=== PATIENT | female | born 1970 | race Caucasian/White ===

== ENCOUNTER 2023-05-19 22:00 | Emergency (ER) | payer OTHER, SELFPAY ==
--- NOTE | ~2023-05-19 | XR_ITS ---
EXAMINATION: XR chest 2V DATE: 05/19/2023 22:30 INDICATION: Chest pain. Nausea. TECHNIQUE: Frontal and lateral views of the chest were obtained. COMPARISON: Chest 2 views 03/23/2014 FINDINGS: A calcified left lung nodule is consistent with old granulomatous disease. There is mild sc arring at right lung apex. No pleural effusion or pneumothorax. The heart size is normal. IMPRESSION: 1. Mild scarring at right lung apex. Reviewed, dictated and finalized at location E.
[2023-05-19 22:04] VITALS: PULSE 70; RESP 19; TEMP 36; O2SAT 100
--- NOTE | 2023-05-19 22:05 | ECG_ITS ---
Measurements Intervals [place] Rate: 69 P: 78 [place]: 173 QRS: 76 QRSD: 92 T: 68 QT: 425 QTc: 457 Interpretive Statements SINUS RHYTHM LOW QRS VOLTAGE IN PRECORDIAL LEADS BORDERLINE ECG NO PREVIOUS ECG AVAILABLE FOR COMPARISON Electronically Signed On 05-20-2023 7:56:14 CDT by Talha Abreu D.O.
[2023-05-19 22:32] LABS: Basophils Absolute Auto 0.1 K/mm3 (0.0-0.1); Basophils Percent Auto 1.2 % (0.2-1.2); Eosinophils Absolute Auto 0.4 K/mm3 (0-0.3); Eosinophils Percent Auto 4.8 % (0-4.4); Hemoglobin 12.9 g/dL (12.0-15.0); Immature Granulocyte Absolute 0.02 K/mm3 (0.00-0.031); Immature Granulocyte Percent A 0.3 % (0-0.5); Lymphocytes Absolute Auto 3.04 K/mm3 (0.9-3.2); Lymphocytes Percent Auto 39.5 % (18.3-44.2); Mean Corpuscular HGB Conc 33.1 g/dl (32-36); Mean Corpuscular Hemoglobin 32.3 pg (26-34); Mean Corpuscular Volume 97.5 fl (80-100); Mean Platelet Volume 12.3 fl (7.4-10.4); Monocytes Absolute Auto 0.6 K/mm3 (0.1-0.6); Monocytes Percent Auto 7.5 % (2.6-8.5); Neutrophils Absolute Auto 3.6 K/mm3 (1.3-6.7); Neutrophils Percent Auto 46.7 % (45.5-73.1); Platelet Count Result 179 k/mm3 (150-375); White Blood Count 7.7 K/mm3 (4.5-10.0)
[2023-05-19 22:43] LABS: Prothrombin Time 13.2 Seconds (11.1-14.7)
[2023-05-19 22:44] LABS: Partial Thromboplastin Time 28.2 SECONDS (22.3-36.8)
[2023-05-19 22:47] LABS: Alanine Aminotransferase 22 U/L (6-35); Albumin Level 3.9 g/dL (3.5-5.1); Alkaline Phosphatase 73 U/L (38-126); Anion Gap 7 mmol/L (8-16); Aspartate Amino Transferase 41 U/L (14-36); Bilirubin,Total 0.2 mg/dL (0.2-1.3); Blood Urea Nitrogen 18 mg/dL (7-17); Calcium 8.8 mg/dL (8.4-10.2); Carbon Dioxide 31 mmol/L (22-30); Chloride 100 mmol/L (98-107); Estimated CRCL calculation 87 ml/min; Estimated Glomerular Filt Rate > 60; Glucose 109 mg/dL (65-110); Lipase 99 U/L (23-300); Potassium 3.3 mmol/L (3.4-5.0); Sodium 138 mmol/L (137-145)
[2023-05-19 22:58] LABS: Troponin I < 0.012 ng/mL (0.000-0.034)
--- NOTE | 2023-05-19 23:14 | PC.NURSE ---
pt reports chest pain is better and is requesting to leave. IV removed w/ catheter intact. pt ambulated out of ED without difficulty.
== END 2023-05-19 23:14 | disposition left against medical advice (07) ==
LOC: ANHED 23:21
PROVIDERS: Emergency Provider Emergency Medicine
DX: R07.9 Chest pain, unspecified (principal)
CPT/HCPCS: 36415; 71046; 80053; 83690; 84484; 85025; 85610; 85730; 93005; 99199

== ENCOUNTER 2024-11-02 12:07 | Emergency (ER) | payer MEDICAID, SELFPAY ==
--- NOTE | ~2024-11-02 | CT_ITS ---
EXAMINATION: CTA chest PE protocol DATE: 11/02/2024 13:19 INDICATION: Tachycardia and chest pain TECHNIQUE: Computed tomography (CT) pulmonary angiogram of the chest was performed with 100 mL Omnipa que-350 intravenous contrast. Additional 3D reconstructions utilizing coronal maximum intensity proje ction (MIP) were performed. Automated exposure control and iterative reconstruction technique were em ployed. The dose-length product was 201.72 mGy-cm. COMPARISON: None FINDINGS: No pulmonary embolism. Mild emphysema. Calcified nodule left lower lobe consistent with old granuloma tous disease. No pneumonia, pulmonary edema, pleural effusion or pneumothorax. Heart size is normal. No pericardial effusion. Thoracic aorta is normal in caliber with no dissection. No pathologically en larged thoracic lymphadenopathy. 8 mm cyst at the dome of the liver. Schmorl's node chronic mild comp ression fracture involving the superior endplate of T11. IMPRESSION: 1. No pulmonary embolism or other acute cardiopulmonary disease. Reviewed, dictated and finalized at location A. YSIS TECHNICIAN
--- NOTE | ~2024-11-02 | XR_ITS ---
EXAMINATION: XR chest 2V DATE: 11/02/2024 12:47 INDICATION: Chest pain TECHNIQUE: PA and lateral views of the chest were obtained. COMPARISON: Chest radiograph dated 05/19/23 FINDINGS: Calcified nodules in the left midlung zone consistent with old granulomatous disease. No other airspa ce opacities, pulmonary edema, pleural effusion or pneumothorax. The cardiomediastinal silhouette is normal. Mild thoracic spondylosis. IMPRESSION: 1. No acute cardiopulmonary disease. Reviewed, dictated and finalized at location A. TABLE OPERATOR
[2024-11-02 12:13] VITALS: BP 98/76; PULSE 102; RESP 16; O2SAT 96
--- NOTE | 2024-11-02 12:22 | ECG_ITS ---
Test Date: 2024-11-02 15:54:14 Measurements Intervals [place] Rate: 72 P: 73 [place]: 168 QRS: 76 QRSD: 82 T: 71 QT: 423 QTc: 465 Interpretive Statements SINUS RHYTHM LOW QRS VOLTAGE IN PRECORDIAL LEADS CONSIDER ANTERIOR INFARCT, AGE INDETERMINATE BASELINE ARTIFACT- I, II, III, AVR, AVL, V1-V3 ABNORMAL ECG No previous ECG available for comparison Electronically Signed On 11-02-2024 17:00:32 CVICU NURSE by Talha Abreu D.O.
[2024-11-02 12:34] LABS: Glucose Point of Care 111 mg/dl (65-105)
--- OUTSIDE RECORDS SUMMARY | 2024-11-02 12:46 | XMS_ITS | Patient Health Summary ---
Author Organization [facility] Address [address] [place] [address] Care Team Providers Care Ham Boner Name Role Phone Corby Castellano [employer] SUPERVISOR-BETTING AGENCY COUNTER CLERK Primary Care Provider [phone] Note from [facility],non-owned Affiliates and Associated Physician Practices is amultiple site organization consisting of ambulatory clinics and hospital sitesin [place], [place], [place] and [place]. This disclosure is being madepursuant to the Care Everywhere program and may not contain all information available regarding this patient. Last updated 18.[facility] Allergies * Penicillins(Urticaria) -Medium Criticality * Sulfa Drugs(Urticaria) -Medium Criticality Medications * Be aware that medications may not be up to date on this document. Alwaysverify current medications with the patient. * naproxen (NAPROSYN) 500 MG tablet(Started 03/30/2016) Take 500 mg by mouth BID. 3 refills left * OMEPRAZOLE PO Take 1 tablet by mouth once daily * fluconazole (DIFLUCAN) 200 MG tablet(Started 05/02/2019) Take 1 tablet by mouth every 7 days 1 refill remaining * ketoconazole (NIZORAL) 2 % cream(Started 05/02/2019) Apply to affected areas twice daily. 14 days supply. 1 refill remaining * hydrocortisone (HYTONE) 2.5 % cream(Started 05/02/2019) Apply to affected areas of face twice daily. 30 days supply. 1 refill remaining Active Problems No known active problems Social History Tobacco Use Types Packs/Day Years Used Date Smoking Tobacco: Every Day Smokeless Tobacco: Never Sex and Gender Information Value Date Recorded Sex Assigned at Not on file Gender Identity Not on file Sexual Orientation Not on file Last Filed Vital Signs Vital Sign Reading Time Taken Comments Blood Pressure - - Pulse - - Temperature - - Respiratory Rate - - Oxygen Saturation - - Inhaled Oxygen Concentration - - Weight 64.4 kg (142 lb) 03/30/2016 9:58 AM CDT Height 175.3 cm (5' 9 ) 03/30/2016 9:58 AM CDT Body Mass Index 20.97 03/30/2016 9:58 AM CDT Procedures * XR SHOULDER LEFT 2VW OR MORE(Performed 03/30/2016) Results * XR SHOULDER LEFT 2VW OR MORE (03/30/2016 9:58 AM CDT) Anatomical Region Laterality Modality Upper Extremity Other Impressions 03/30/2016 10:17 AM CDT Impression: Mild left acromioclavicular osteoarthritis. This report was electronically signed by CK RICARDO M.D. on 03/30/2016 10:17 AM . Narrative 03/30/2016 10:17 AM CDT Examination: Left shoulder minimum 2 views History: Left shoulder pain Findings: 3 views of the left shoulder were performed without prior comparison. Alignment of the left shoulder is normal. There is no acute fracture. There is mild acromioclavicular osteoarthritis. The glenohumeral joint space is normal. Likely granulomas are noted in the left lung. Procedure Note Ck Ricardo MD - 12/16/2017 Examination: Left shoulder minimum 2 views History: Left shoulder pain Findings: 3 views of the left shoulder were performed without prior comparison.Alignment of the left shoulder is normal. There is no acute fracture.There is mild acromioclavicular osteoarthritis. The glenohumeral jointspace is normal. Likely granulomas are noted in the left lung. IMPRESSION Impression: Mild left acromioclavicular osteoarthritis. This report was electronically signed by CK RICARDO M.D. on03/30/2016 10:17 AM . Joe Krishna MD DIAGNOSTIC IMAGING O [facility] Care Teams Ham Boner Relationship Specialty Start Date End Date Corby Castellano, [employer] SUPERVISOR-BETTING AGENCY COUNTER CLERK [facility] - General 03/08/16
--- OUTSIDE RECORDS SUMMARY | 2024-11-02 12:46 | XMS_ITS | Clinical Summary ---
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 Problems Includes: Problems addressed during this encounter and other active Problems All Visits Onset Date Resolved Date Provider Condition S tatus Cervical Pap Smear Positive Atypical Glandular Cells 05/26/2020 ROSEANN PATEL MD Active Last Documented On 05/26/2020 10:44AM ; [facility] Note: Unchanged Dyspepsia 03/13/2014 AIME GOODE MD Active Last Documented On 4 11:13AM ; [facility] Smoking Cigarettes 02/28/2013 AIME GOODE MD Active Last Documented On 3 10:55AM ; [facility] Note: Currently smoking a pack per day Plan of Treatment No Plan of Treatment Recorded Assessments Includes: Assessments from this encounter No Assessments Recorded Medical Equipment - Implanted Devices Includes: Current Devices No Medical Equipment Recorded Medications Includes: Medications discussed during this encounter and other current Medications Current Medications (continue as prescribed) Meloxicam 7.5 MG Oral Tablet 05/26/2020 Provider: Diagnosis: Last Documented On 0 10:04AM By SUN HOWARD ; [facility] Body/Hair/Skin/Nails Oral Capsule 11/18/2019 Provide r: Diagnosis: Last Documented On 0 1:56PM By SUN HOWARD ; [facility] Vitamin D3 1.25 MG (06475 UT) Oral Capsule 08/26/2019 Provider: Diagnosis: Last Documented On 9 12:49PM By DOMINICK HOWARD ; [facility] Omeprazole 20 MG Oral Tablet Delayed Release 08/08 Provider: Diagnosis: Last Documented On 08/08/2019 1:52PM By DOMINICK HOWARD ; [facility] Medications Administered Includes: Administered Medications from this encounter No Administered Medications Recorded Results Includes: Results discussed during this encounter No Results Recorded For Specified Dates History of Present Illness Includes: History of Present Illness from this encounter No History of Present Illness Recorded Social History No Social History Recorded - Smoking Status Unknown Medical History Includes: Medical History addressed during this encounter No Medical History Recorded Family History Includes: Family History addressed during this encounter No Family History Recorded Review of Systems Includes: Review of Systems from this encounter No Review of Systems Recorded Mental Status Includes: Mental Status from this encounter No Mental Status Recorded Functional Status Includes: Functional Status from this encounter No Functional Status Recorded Physical Exam Includes: Physical Exam from this encounter No Physical Exam Recorded Allergies Includes: Active Allergies Substance Type Reaction Onset Date Resolved Date Statu s Penicillin V Potassium Allergy 02/18/2011 Active Last Documented On 0 10:03AM ; [facility] Bactrim Allergy 02/18/2011 Active Last Documented On 0 10:03AM ; [facility] Insurance Includes: Active Insurance Policies Plan Name Member ID Group # Subscriber Relationship Effect latrell Dates 1 - [facility] [id number] LLOYD STRANGE Self Clinical Notes Includes: Clinical Notes from this encounter No Clinical Notes Recorded
--- OUTSIDE RECORDS SUMMARY | 2024-11-02 12:46 | XMS_ITS ---
Author Organization [facility] Address [address] [place] [address] Phone Care Team Providers Care Soc Analyst Name Role Phone AMANDA MEJIA, ROSEANN Lee Unavailable [phone] [facility] Primary Care Provider Un available Problems Includes: Active, inactive, and resolved Problems All Visits Onset Date Resolved Date Provider Condition S tatus Cervical Pap Smear Positive Atypical Glandular Cells 05/26/2020 ROSEANN PATEL MD Active Last Documented On 05/26/2020 10:44AM ; [facility] Note: Unchanged Dyspepsia 03/13/2014 AIME GOODE MD Active Last Documented On 4 11:13AM ; [facility] Smoking Cigarettes 02/28/2013 AIME GOODE MD Active Last Documented On 3 10:55AM ; [facility] Note: Currently smoking a pack per day Plan of Treatment Findings Encounter Date Will schedule f/u with Dr. Vic gallardo to go over both colposcopy and EMB results and review plan of care going forward ENDOMETRIAL BIOPSY with MONICA VALDES [facility] 12/16/2019 Last Documented On 0 1:51PM ; [facility] Ordered Clinical summary pro vided to patient ENDOMETRIAL BIOPSY with MONICA VALDES [facility] 12/16/2019 Last Documented On 0 1:51PM ; [facility] Ordered Clinical summary pro vided to patient NEW TRAINING PROGRAM DEVELOPER EXAM with MONICA VALDES [facility] 08/08/2019 Last Documented On 9 2:09PM ; [facility] Ordered follow-up visit 1 ye ar or as needed NEW TRAINING PROGRAM DEVELOPER EXAM with MONICA VALDES [facility]- 08/08/2019 Last Documented On 9 2:09PM ; [facility] Instructions to patient Instructions for patient : B reast Self Exam discussed Last Documented On 9 1:41PM ; [facility] Lose weight Last Documented On 9 1:42PM ; [facility] Instructions for patient : B reast Self Exam discussed Last Documented On 4 11:30AM ; [facility] Instructions for patient : B reast Self Exam discussed Last Documented On 3 10:56AM ; [facility] Instructions for patient : B reast Self Exam discussed Last Documented On 1 2:34PM ; [facility] Education and Decision Aids were provided during visit for: INFORMED CONSENT DISCUSSION: Endometrial biopsy was discussed in detail including discomfort, insufficient specimen with need to repeat test, and rare incidence of uterine perforation. Patient expressed understanding of the above and consented to the procedure Last Documented On 0 1:35PM ; [facility] Smoking cessation advised Last Documented On 0 1:36PM ; [facility] INFORMED CONSENT DISCUSSION: Colposcopy was discussed in detail including risk of post procedure bleeding and infection. Patient is not to have anything in the vagina till all of the discharge quits following the procedure. Patient expressed understanding of the above and consented to the procedure Last Documented On 0 2:39PM ; [facility] Patient Education: Daily hernando cium and vitamin D Last Documented On 9 1:41PM ; [facility] Patient Education: weight be aring exercise Last Documented On 9 1:41PM ; [facility] Smoking cessation advised Last Documented On 9 1:42PM ; [facility] Patient education : Last Documented On 4 11:30AM ; [facility] STD screening offered and de clined Last Documented On 4 11:30AM ; [facility] Patient education : Last Documented On 3 10:56AM ; [facility] STD screening offered and de clined Last Documented On 3 10:56AM ; [facility] STD screening offered and de clined Last Documented On 1 2:34PM ; [facility] Assessments Includes: Assessments for all patient encounters Findings Encounter Date Abnormal Pap smear: atypical glandular cells CONSULTATION with ROSEANN PATEL MD 05/26/2020 Last Documented On 0 10:49AM ; [facility] Assessment of abnormal Pap s mear of cervix ENDOMETRIAL BIOPSY with MONICA Ray KEISHA [facility] 12/16/2019 Last Documented On 0 1:51PM ; [facility] Assessment of abnormal Pap s mear: atypical glandular cells ENDOMETRIAL BIOPSY with MONICA VALDES [facility] 12/16/2019 Last Documented On 0 1:51PM ; [facility] Abnormal Pap smear: atypical glandular cells COLPOSCOPY with ROSEANN PATEL MD 11/18/2019 Last Documented On 0 2:40PM ; [facility] NORMAL FEMALE EXAM NEW TRAINING PROGRAM DEVELOPER EXAM with MONICA MORAN [facility] 08/08/2019 Last Documented On 9 2:09PM ; [facility] Screening Malig. Neoplasm Rectum NEW TRAINING PROGRAM DEVELOPER EXAM wi MONICA A KEISHA [facility] 08/08/2019 Last Documented On 9 2:09PM ; [facility] Routine pelvic exam TRAINING PROGRAM DEVELOPER EXAM with AIME GOODE MD 03/13/2014 Last Documented On 4 11:39AM ; [facility] Routine pelvic exam TRAINING PROGRAM DEVELOPER EXAM with AIME GOODE MD 02/28/2013 Last Documented On 3 11:11AM ; [facility] Routine pelvic exam NEW TRAINING PROGRAM DEVELOPER EXAM with AIME MUÑOZ MD 02/18/2011 Last Documented On 1 2:37PM ; [facility] Instructions Includes: Instructions for all patient encounters Instructions to patient Instructions for patient : B reast Self Exam discussed Last Documented On 9 1:41PM ; [facility] Lose weight Last Documented On 9 1:42PM ; [facility] Instructions for patient : B reast Self Exam discussed Last Documented On 4 11:30AM ; [facility] Instructions for patient : B reast Self Exam discussed Last Documented On 3 10:56AM ; [facility] Instructions for patient : B reast Self Exam discussed Last Documented On 1 2:34PM ; [facility] Education and Decision Aids were provided during visit for: INFORMED CONSENT DISCUSSION: Endometrial biopsy was discussed in detail including discomfort, insufficient specimen with need to repeat test, and rare incidence of uterine perforation. Patient expressed understanding of the above and consented to the procedure Last Documented On 0 1:35PM ; [facility] Smoking cessation advised Last Documented On 0 1:36PM ; [facility] INFORMED CONSENT DISCUSSION: Colposcopy was discussed in detail including risk of post procedure bleeding and infection. Patient is not to have anything in the vagina till all of the discharge quits following the procedure. Patient expressed understanding of the above and consented to the procedure Last Documented On 0 2:39PM ; [facility] Patient Education: Daily hernando cium and vitamin D Last Documented On 9 1:41PM ; [facility] Patient Education: weight be aring exercise Last Documented On 9 1:41PM ; [facility] Smoking cessation advised Last Documented On 9 1:42PM ; [facility] Patient education : Last Documented On 4 11:30AM ; [facility] STD screening offered and de clined Last Documented On 4 11:30AM ; [facility] Patient education : Last Documented On 3 10:56AM ; [facility] STD screening offered and de clined Last Documented On 3 10:56AM ; [facility] STD screening offered and de clined Last Documented On 1 2:34PM ; [facility] Medical Equipment - Implanted Devices Includes: Current and historical Devices No Medical Equipment Recorded Medications Includes: Current and historical Medications Current Medications (continue as prescribed) Meloxicam 7.5 MG Oral Tablet 05/26/2020 Provider: Diagnosis: Last Documented On 0 10:04AM By SUN HOWARD ; [facility] Body/Hair/Skin/Nails Oral Capsule 11/18/2019 Provide r: Diagnosis: Last Documented On 0 1:56PM By SUN HOWARD ; [facility] Vitamin D3 1.25 MG (90561 UT) Oral Capsule 08/26/2019 Provider: Diagnosis: Last Documented On 9 12:49PM By DOMINICK HOWARD ; [facility] Omeprazole 20 MG Oral Tablet Delayed Release 08/08 Provider: Diagnosis: Last Documented On 08/08/2019 1:52PM By DOMINICK HOWARD ; [facility] Past Medications on file Biotin 10 MG OR TABS 03/13/2014 - 08/08/2019 Provider: Diagnosis: Last Documented On 08/08/2019 1:52PM By DOMINICK HOWARD ; [facility] Medications Administered Includes: Administered Medications in patient's chart No Administered Medications Recorded Results Includes: Results from 11/02/2023 through 11/02/2024 No Results Recorded For Specified Dates History of Present Illness History of Present Illness not supported for this document type No History of Present Illness Recorded Social History Description Last Updated Social history changed 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-19 12/16/2019 Last Documented On 0 1:51PM ; [facility] Drug use by a sexual partner does not in clude intravenous drug use 12/16/2019 Last Documented On 0 1:51PM ; [facility] Exercising regularly 12/16/2019 Last Documented On 0 1:51PM ; [facility] In monogamous relationship 12/16/2019 Last Documented On 0 1:51PM ; [facility] Not using alcohol 12/16/2019 Last Documented On 0 1:51PM ; [facility] Not using drugs cocaine a few times 11/18 Last Documented On 0 1:51PM ; [facility] Not using intravenous drugs 12/16/2019 Last Documented On 0 1:51PM ; [facility] Partner has not had a STD in the past ye ar 12/16/2019 Last Documented On 0 1:51PM ; [facility] Patient does not report having sex when she didn't want to 12/16/2019 Last Documented On 0 1:51PM ; [facility] Sexual partner has not had o ther partners while in relationship with patient 12/16/2019 Last Documented On 0 1:51PM ; [facility] Sexual partner has not had sex with pros titutes 12/16/2019 Last Documented On 0 1:51PM ; [facility] Alcohol use: 2 drinks or less per day oc c 03/13/2014 Last Documented On 4 11:39AM ; [facility] Cigarette smoking 1ppd x 15 years 2013 Last Documented On 4 11:39AM ; [facility] Sexually active 03/13/2014 Last Documented On 4 11:39AM ; [facility] Smoking status : Current everyday smoker 03/13/2014 Last Documented On 4 11:39AM ; [facility] Patient has had sex under th e influence of alcohol or drugs in the last year 02/18/2011 Last Documented On 1 2:37PM ; [facility] Using condoms 02/18/2011 Last Documented On 1 2:37PM ; [facility] Exercise frequency walking 02/18/2011 Last Documented On 1 2:37PM ; [facility] Sexually active with 1 partners in the l ast year 02/18/2011 Last Documented On 1 2:37PM ; [facility] Alcohol 02/18/2011 Last Documented On 1 2:37PM ; [facility] Caffeine use 02/18/2011 Last Documented On 1 2:37PM ; [facility] Daily cola consumption 02/18/2011 Last Documented On 1 2:37PM ; [facility] Smoking 1 1/2 pack 02/18/2011 Last Documented On 1 2:37PM ; [facility] Tobacco use 02/18/2011 Last Documented On 1 2:37PM ; [facility] Yazdanism affiliation nondenominational 02/19/20 11 Last Documented On 1 2:37PM ; [facility] Single 02/18/2011 Last Documented On 1 2:37PM ; [facility] Cigarette smoking 1.5 pack-years 011 Last Documented On 1 2:37PM ; [facility] Procedures and Surgical History Surgical History Last Updated Previous colposcopy 11/18/2019 05/26/2020 Last Documented On 0 10:49AM ; [facility] Surgical / procedural history left knee surgery orthosco py 03/13/2014 Last Documented On 4 11:39AM ; [facility] Medical History Includes: Medical History in patient's chart Description Last Updated LMP: 12/2018 for just one day 05/26/2020 Last Documented On 0 10:49AM ; [facility] Not previously diagnosed with a STD 11/18 Last Documented On 0 1:51PM ; [facility] Not using contraception 12/16/2019 Last Documented On 0 1:51PM ; [facility] Vaginal delivery 11/18/2019 Last Documented On 0 2:40PM ; [facility] History of menopause 11/18/2019 Last Documented On 0 2:40PM ; [facility] Last mammogram date: 07/11/2019 11/18/19 20 Last Documented On 0 2:40PM ; [facility] Last pap smear date 08/08/2019 0 Last Documented On 0 2:40PM ; [facility] Patient recently had a dexa scan 019 11/18/2019 Last Documented On 0 2:40PM ; [facility] Result: abnormal 11/18/2019 Last Documented On 0 2:40PM ; [facility] History of screening mammogram was perfo rmed 06/06/2019 08/08/2019 Last Documented On 9 2:09PM ; [facility] Sexually active 08/08/2019 Last Documented On 9 2:09PM ; [facility] History of Pap smear done 2015 9 Last Documented On 9 2:09PM ; [facility] 1 03/13/2014 Last Documented On 4 11:39AM ; [facility] Para 1 03/13/2014 Last Documented On 4 11:39AM ; [facility] Result: normal 03/13/2014 Last Documented On 4 11:39AM ; [facility] Result: normal 03/13/2014 Last Documented On 4 11:39AM ; [facility] No recent change in medical history 02/16 Last Documented On 3 11:11AM ; [facility] An HIV test was performed 02/18/2011 Last Documented On 1 2:37PM ; [facility] A breast self-exam was performed 011 Last Documented On 1 2:37PM ; [facility] Condoms 02/18/2011 Last Documented On 1 2:37PM ; [facility] 1 living children 02/18/2011 Last Documented On 1 2:37PM ; [facility] Delivery date 200702/18/2011 Last Documented On 1 2:37PM ; [facility] History of the 1st : 02/18/2011 Last Documented On 1 2:37PM ; [facility] Family History Includes: Family History in patient's chart Description Last Updated Fraternal history of pure hypercholester olemia brothers 08/08/2019 Last Documented On 9 2:09PM ; [facility] Paternal history of hypertension father 08/08/2019 Last Documented On 9 2:09PM ; [facility] pat gma diabetes 03/13/2014 Last Documented On 4 11:39AM ; [facility] No family history of malignant female br east neoplasm 02/28/2013 Last Documented On 3 11:11AM ; [facility] No family history of malignant neoplasm of the large intestine 02/28/2013 Last Documented On 3 11:11AM ; [facility] No family history of malignant neoplasm of the ovary 02/28/2013 Last Documented On 3 11:11AM ; [facility] Family history of diabetes mellitus shultz rnal grandmother 02/28/2013 Last Documented On 3 11:11AM ; [facility] Family history unchanged 02/28/2013 Last Documented On 3 11:11AM ; [facility] Family history of Diabetes 02/18/2011 Last Documented On 1 2:37PM ; [facility] Review of Systems Review of Systems not supported for this document type No Review of Systems Recorded Mental Status No Mental Status Recorded Functional Status No Functional Status Recorded Physical Exam Physical Exam not supported for this document type No Physical Exam Recorded Allergies Includes: Active, inactive, and resolved Allergies Substance Type Reaction Onset Date Resolved Date Statu s Penicillin V Potassium Allergy 02/18/2011 Active Last Documented On 0 10:03AM ; [facility] Bactrim Allergy 02/18/2011 Active Last Documented On 0 10:03AM ; [facility] Insurance Includes: Active Insurance Policies Plan Name Member ID Group # Subscriber Relationship Effect latrell Dates 1 - [facility] [id number] LLOYD STRANGE Self Clinical Notes Includes: Signed Clinical Notes starting from 10/07/2022 No Clinical Notes Recorded
--- OUTSIDE RECORDS SUMMARY | 2024-11-02 12:46 | XMS_ITS | Clinical Summary ---
Author Organization [facility] Address [address] [place] [address] Phone Care Team Providers Care Pipeline Welder Name Role Phone AMANDA MEJIA, ROSEANN Lee Unavailable [phone] REINA FORD Primary Care Provider Un available Reason for Visit and Chief Complaint previous history of abnormal Pap smear - The Chief Complaint is: f/u on colp and emb; pt c/o vaginal odor and clear discharge the past 2 weeks Problems Includes: Problems addressed during this encounter and other active Problems Current Visit Onset Date Resolved Date Provider Conditio n Status Cervical Pap Smear Positive Atypical Glandular Cells 05/26/2020 ROSEANN PATEL MD Active Last Documented On 05/26/2020 10:44AM ; [facility] Note: Unchanged Smoking Cigarettes 02/28/2013 AIME GOODE MD Active Last Documented On 02/28/2013 10:55AM ; [facility] Note: Currently smoking a pack per day Past Visits Onset Date Resolved Date Provider Condition Status Dyspepsia 03/13/2014 AIME GOODE MD Active Last Documented On 4 11:13AM ; [facility] Plan of Treatment No Plan of Treatment Recorded Assessments Includes: Assessments from this encounter Findings - Abnormal Pap smear: atypical glandular cells - Last Documented On 05/26/2020 10:49AM ; [facility] Medical Equipment - Implanted Devices Includes: Current Devices No Medical Equipment Recorded Medications Includes: Medications discussed during this encounter and other current Medications Current Medications (continue as prescribed) Meloxicam 7.5 MG Oral Tablet 05/26/2020 Provider: Diagnosis: Last Documented On 0 10:04AM By SUN HOWARD ; [facility] Body/Hair/Skin/Nails Oral Capsule 11/18/2019 Provide r: Diagnosis: Last Documented On 0 1:56PM By SUN HOWARD ; [facility] Vitamin D3 1.25 MG (50646 UT) Oral Capsule 08/26/2019 Provider: Diagnosis: Last Documented On 9 12:49PM By DOMINICK HOWARD ; [facility] Omeprazole 20 MG Oral Tablet Delayed Release 08/08 Provider: Diagnosis: Last Documented On 08/08/2019 1:52PM By DOMINICK HOWARD ; [facility] Medications Administered Includes: Administered Medications from this encounter No Administered Medications Recorded Vital Signs Includes: Vital Signs from this encounter Vital Name 05/26/2020 10:04A Blood Pressure Sitting (mmHg) 110/60 Temp-Oral (F) 98.3 Height (in) 69 Weight (lb) 152.25 Body Mass Index (kg/m2) 22.5 Body Surface Area (m2) 1.8 Last Documented: On 05/26/2020 10:06A M ; [facility] Results Includes: Results discussed during this encounter No Results Recorded For Specified Dates History of Present Illness Includes: History of Present Illness from this encounter AVE STRANGE is a 49 year old female. - Allergy list reviewed - Medication reconciliation performed - Medication list reviewed - Patient denies any problems from the procedure - PRIMARY CARE PROVIDER : Dr Paris Castellano - Previous colposcopy on 11/18/2019 - Pathology report Reviewed and showed biopsy with tiny fragment of atypical epithelium: reactive vs atypia and the ECC was benign - Pathology report from the endometrial biopsy done on 12/16/2019 shows detached fragments of benign glandular tissue with chronic inflammation - Patient tolerated procedure well - Abnormal Pap smear: atypical glandular cells from pap from 08/08/2019 Social History Description Last Updated Social history changed Alex anderson still working for [employer] for [facility] [employer] the COVID-19 12/16/2019 Last Documented On 0 9:55AM ; [facility] Exercising regularly 12/16/2019 Last Documented On 0 9:55AM ; [facility] In monogamous relationship 12/16/2019 Last Documented On 0 9:55AM ; [facility] Not using alcohol 12/16/2019 Last Documented On 0 9:55AM ; [facility] Not using drugs cocaine a few times 11/18 Last Documented On 0 9:55AM ; [facility] Cigarette smoking 1ppd x 15 years 2013 Last Documented On 0 9:55AM ; [facility] Sexually active 03/13/2014 Last Documented On 0 9:55AM ; [facility] Using condoms 02/18/2011 Last Documented On 0 9:55AM ; [facility] Exercise frequency walking 02/18/2011 Last Documented On 0 9:55AM ; [facility] Sexually active with 1 partners in the l ast year 02/18/2011 Last Documented On 0 9:55AM ; [facility] Caffeine use 02/18/2011 Last Documented On 0 9:55AM ; [facility] Daily cola consumption 02/18/2011 Last Documented On 0 9:55AM ; [facility] Smoking 1 1/2 pack 02/18/2011 Last Documented On 0 9:55AM ; [facility] Tobacco use 02/18/2011 Last Documented On 0 9:55AM ; [facility] Worship affiliation [email or web address] 02/19/20 11 Last Documented On 0 9:55AM ; [facility] Single 02/18/2011 Last Documented On 0 9:55AM ; [facility] Cigarette smoking 1.5 pack-years 011 Last Documented On 0 9:55AM ; [facility] Smoking Status Unknown Procedures and Surgical History Includes: Procedures from this encounter Procedures Code Diagnosis Performing Provider Service L ocation Service Date Clinical summary provided to patient Last Documented On 0 10:21AM ; [facility] Surgical History Last Updated Previous colposcopy 11/18/2019 05/26/2020 Last Documented On 0 10:49AM ; [facility] Surgical / procedural history left knee surgery orthosco py 03/13/2014 Last Documented On 0 9:55AM ; [facility] Medical History Includes: Medical History addressed during this encounter Description Last Updated LMP: 12/2018 for just one day 05/26/2020 Last Documented On 0 10:49AM ; [facility] Not using contraception 12/16/2019 Last Documented On 0 9:55AM ; [facility] Vaginal delivery 11/18/2019 Last Documented On 0 9:55AM ; [facility] History of menopause 11/18/2019 Last Documented On 0 9:55AM ; [facility] Last mammogram date: 07/11/2019 11/18/19 20 Last Documented On 0 9:55AM ; [facility] Last pap smear date 08/08/2019 0 Last Documented On 0 9:55AM ; [facility] Patient recently had a dexa scan 019 11/18/2019 Last Documented On 0 9:55AM ; [facility] Result: abnormal 11/18/2019 Last Documented On 0 9:55AM ; [facility] Sexually active 08/08/2019 Last Documented On 0 9:55AM ; [facility] 1 03/13/2014 Last Documented On 0 9:55AM ; [facility] Para 1 03/13/2014 Last Documented On 0 9:55AM ; [facility] Result: normal 03/13/2014 Last Documented On 0 9:55AM ; [facility] Condoms 02/18/2011 Last Documented On 0 9:55AM ; [facility] 1 living children 02/18/2011 Last Documented On 0 9:55AM ; [facility] Delivery date 200702/18/2011 Last Documented On 0 9:55AM ; [facility] History of the 1st : 02/18/2011 Last Documented On 0 9:55AM ; [facility] Family History Includes: Family History addressed during this encounter Description Last Updated Fraternal history of pure hypercholester olemia brothers 08/08/2019 Last Documented On 0 9:55AM ; [facility] Paternal history of hypertension father 08/08/2019 Last Documented On 0 9:55AM ; [facility] pat gma diabetes 03/13/2014 Last Documented On 0 9:55AM ; [facility] Family history of diabetes mellitus carrington brennan grandmother 02/28/2013 Last Documented On 0 9:55AM ; [facility] Review of Systems Includes: Review of Systems from this encounter No Review of Systems Recorded Mental Status Includes: Mental Status from this encounter No Mental Status Recorded Functional Status Includes: Functional Status from this encounter No Functional Status Recorded Physical Exam Includes: Physical Exam from this encounter Allergies Includes: Active Allergies Substance Type Reaction Onset Date Resolved Date Statu s Penicillin V Potassium Allergy 02/18/2011 Active Last Documented On 0 10:03AM ; [facility] Bactrim Allergy 02/18/2011 Active Last Documented On 0 10:03AM ; [facility] Encounters Encounter Provider Location Date Check-In Time Check-Out Time Diagnosis CONSULTATION ROSEANN PATEL MD [facility] 05/26/20 20 9:54AM 10:57AM Cervical Pap Smear Positive Atypical Glandular Cells Insurance Includes: Active Insurance Policies Plan Name Member ID Group # Subscriber Relationship Effect latrell Dates 1 - [facility] [id number] LLOYD STRANGE Self Clinical Notes Includes: Clinical Notes from this encounter No Clinical Notes Recorded
--- OUTSIDE RECORDS SUMMARY | 2024-11-02 12:46 | XMS_ITS | Referral Summary ---
Author Organization [facility] Address [address] [place] [address] Care Team Providers Care Fish Cake Maker Name Role Phone Corby Castellano COORDINATOR INTEGRATED MARKETING-TUGBOAT MATE Primary Care Provider [phone] Source Comments [facility],non-owned Affiliates and Associated Physician Practices is amultiple site organization consisting of ambulatory clinics and hospital sitesin [place], [place], [place] and [place]. This disclosure is being madepursuant to the Care Everywhere program and may not contain all information available regarding this patient. Last updated 18.[facility] Allergies Active Allergy Reactions Criticality Noted Date Comments Penicillins Urticaria Medium 03/30/2016 Sulfa Drugs Urticaria Medium 03/30/2016 Medications * Be aware that medications may not be up to date on this document. Alwaysverify current medications with the patient. Medication Sig Dispensed Refills Start Date End Date Status naproxen (NAPROSYN) 500 MG tablet Take 500 mg by mouth BID. 60 tablet 3 03/30/2016 Active Additional Information Patient not taking.Reported on 05/02/2019 OMEPRAZOLE PO Take 1 tablet by mouth once daily Active fluconazole (DIFLUCAN) 200 MG tablet Take 1 tablet by mouth every 7 days 4 tablet 1 05/02/2019 Active ketoconazole (NIZORAL) 2 % cream Apply to affected areas twice daily. 14 days supply. 60 g 1 05/02/2019 Active hydrocortisone (HYTONE) 2.5 % cream Apply to affected areas of face twice daily. 30 days supply. 30 g 1 05/02/2019 Active Active Problems No known active problems Social [...] Mass Index 20.97 03/30/2016 9:58 AM CDT Plan of Treatment Not on file Care Teams Fish Cake Maker Relationship Specialty Start Date End Date Corby Castellano, MARYAN-TUGBOAT MATE PCP - General 03/08/16
--- OUTSIDE RECORDS SUMMARY | 2024-11-02 12:46 | XMS_ITS | Clinical Summary ---
Author Organization [facility] Address [address] [address] Care Team Providers Care Hand Tapper Name Role Phone Corby Castellano CLOD PULLER-FORMAL WEAR RENTAL CLERK Primary Care Provider [phone] Source Comments [facility],non-owned Affiliates and Associated Physician Practices is amultiple site organization consisting of ambulatory clinics and hospital sitesin [place], [place], [place] and [place]. This disclosure is being madepursuant to the Care Everywhere program and may not contain all information available regarding this patient. Last updated 18.[facility] Allergies Active Allergy Reactions Criticality Noted Date [...] Active Active Problems No known active problems Family History Medical History Relation Name Comments Cancer - Skin, Non Melanoma Father Asthma Neg Hx CVA Neg Hx Cancer - Breast Neg Hx Cancer - Other Neg Hx Cancer - Skin, Melanoma Neg Hx Eczema Neg Hx Hemophilia Neg Hx Psoriasis Neg Hx Relation Name Status Comments Father Social History Tobacco Use Types Packs/Day Years [...] 03/30/2016 9:58 AM CDT Plan of Treatment Health Maintenance Due Date Last Done Comments COLOGUARD (AGES 45-75) - COL ON CA SCREENING 1972 COLON MONITORING 1972 COLONOSCOPY - COLON CA SCREENING 1972 CT COLONOGRAPHY - COLON CA SCREENING 1972 Colorectal Cancer Screening 1972 FIT - COLON CA SCREENING 1972 FLEX SIG - COLON CA SCREENING 1972 LIPID TESTING 1972 MAMMOGRAM 1972 PAP SMEAR 1972 HIV SCREENING 1987 HEPATITIS C SCREENING 08/12/1990 DTAP/TDAP/TD VACCINES (1 - Tdap) 1991 HEPATITIS B VACCINE (1 of 3 - 19+ 3-dose series) 1991 PNEUMOCOCCAL VACCINE 50+ (1 of 2 - PCV) 1991 PNEUMOCOCCAL VACCINE (1 of 2 - PCV) 1991 ZOSTER VACCINE (1 of 2) 2022 COVID-19 VACCINE (1 - 2023-2 5 season) 2024 INFLUENZA VACCINE (#1) 2024 DEPRESSION SCREENING 09/18/2024 HIB VACCINE Aged Out No longer eligi ble based on patient's age to complete this topic HPV VACCINE Aged Out No longer eligi ble based on patient's age to complete this topic MENINGOCOCCAL (Group B) VACCINE Aged Out No longer eligible based on patient's age to complete this topic MENINGOCOCCAL VACCINE Aged Out No jassi evelyn eligible based on patient's age to complete this topic Care Teams Hand Tapper Relationship Specialty Start Date End Date Tardino, Corby A, MARYAN-FORMAL WEAR RENTAL CLERK PCP - General 03/08/16
--- OUTSIDE RECORDS SUMMARY | 2024-11-02 12:46 | XMS_ITS | Clinical Summary ---
Author Organization [facility] Address [address] [place] [address] Phone Care Team Providers Care Ups Driver Name Role Phone Skyler Flores MD Primary Care Provider [phone] Allergies Active Allergy Reactions Criticality Noted Date Comments Penicillins Hives 09/22/2015 Sulfa Antibiotics Hives 09/22/2015 Medications predniSONE (DELTASONE) 50 MG Tablet Take 1 Tab by mouth daily. Use as directed. 4 Tab 0 6 Active Additional Information Patient not taking.Reported on 04/30/2019 guaiFENesin-cod eine (CHERATUSSIN AC) 100-10 MG/5ML Syrup Take 5 mL by mouth every 4 hours as needed for Cough. 120 mL 0 6 Active Additional Information Patient not taking.Reported on 04/30/2019 OMEPRAZOLE PO Take by mouth. A ctive Active Problems Problem Noted Date Diagnosed Date Thrombosed external hemorrhoid 04/30/2019 Anal skin tag 04/30/2019 SOB (shortness of breath) 09/22/2015 Immunizations Immunization Administration Dates Next Due TDAP Vaccine 06/02/2024 Family History Medical History Relation Name Comments Anemia Brother 1 iron High Cholesterol Brother 1 Chronic Obstructive Pulmonary Disease Brother 2 Hypertension Father Lung Cancer Maternal Grandfather No Known Problems Mother Lung Cancer Paternal Grandfather Diabetes Paternal Grandmother No Known Problems Son Relation Name Status Comments Brother 1 Alive Brother 2 Alive Father Alive Maternal Grandfather Mother Alive Paternal Grandfather Paternal Grandmother Son Alive Social History Tobacco Use Types Packs/Day Years Used Date Smoking Tobacco: Every Day Cigarettes 1 42.5 Started: 04/30/1982 Smokeless Tobacco: Never Alcohol Use Standard Drinks/Week Comments Yes 0 (1 standard drink = 0.6 oz pur e alcohol) once a month Sexually Active Control Partners Comments Not Currently Male Comments No Sex and Gender Information Value Date Recorded Sex Assigned at Not on file Legal Sex Female 10:36 PM CDT Gender Identity Not on file Sexual Orientation Not on file Last Filed Vital Signs Vital Sign Reading Time Taken Comments Blood Pressure 106/68 06/02/2024 12:19 PM CDT Pulse 76 06/02/2024 12:19 PM CDT Temperature 36.6 C (97.8 F) 06/02/2024 11:22 AM CDT Respiratory Rate 18 06/02/2024 12:19 PM CDT Oxygen Saturation 99% 06/02/2024 12:19 PM CDT Inhaled Oxygen Concentration - - Weight 63.5 kg (140 lb) 06/02/2024 11:22 AM CDT Height 172.7 cm (5' 8 ) 06/02/2024 11:22 AM CDT Body Mass Index 21.29 06/02/2024 11:22 AM CDT Plan of Treatment Health Maintenance Due Date Last Done Comments Hepatitis C Virus (HCV) Screening 1972 Hepatitis B Immunization (1 of 3 - 19+ 3-dose series) 1991 Pap Smear 1993 Cervical Cancer Screening (CCS) 2002 HPV/Cotest 2002 Colonoscopy 2017 Colorectal Cancer Screening 2017 Cologuard 2022 Immunochemical Fecal Occult Blood 2022 Pneumococcal Immunization (50+ years) (1 of 1 - PCV) 2022 Zoster Immunization (1 of 2) 2022 Influenza Immunization (#1) 2024 06/29/2017, 1 SARS-COV-2 Immunization (3 - 2023- season) 2024 08/06/2021, 07/16/2021 Mammogram 03/19/2026 03/19/2024, 04/12/2022, 07/09/2021, Additional history exists Td Immunization Every 10 Years (Adults With 1 Tdap) 06/02/2034 06/02/2024 Respiratory Syncytial Virus (RSV) Immunization (Adult) (1 - 1-dose 75+ series) 2047 Discussion re Starting/Frequency of Mammograms Discontinued 03/19/2024, 12/30/2022, 07/09/2021, Additional history exists DTaP/Tdap/Td Immunization Discontinued 06/02/2024 TdaP Immunization Discontinued 06/02/2024 Meningococcal Immunization (ACWY) Aged Out No longer eligible based on patient's age to complete this topic Pneumococcal Immunization Combined Aged Out No longer eligible based on patient's age to complete this topic Rotavirus Immunization Aged Out No lo nger eligible based on patient's age to complete this topic Insurance MEDICAID [place] Care Teams Ups Driver Relationship Specialty Start Date End Date Skyler Flores MD [address] [place] [address] [address] [place] [address] PCP - General Internal Medicine 06/27/22
--- OUTSIDE RECORDS SUMMARY | 2024-11-02 12:46 | XMS_ITS | Encounter Summary ---
Author Organization [facility] Address [address] [place] [address] Care Team Providers Care Traffic Control Operator Name Role Phone Corby Castellano NP Primary Care Provider [phone] Skyler Flores MD Primary Care Provider [phone] Skyler Flores MD Primary Care Provider [phone] Skyler Flores MD Unavailable [phone] Giana Her DO Unavailable [phone] Sonia Winters MD Primary Care Provider [phone] Reason for Visit * Reason Onset Date Comments Scheduling Appointments 07/08/2021 confirmi ng mammogram appt- no answer Encounter Details Date Type Department Care Team (Late st Contact Info) Description 07/08/2021 Telephone [facility] [address] [place] [address] Aditi Harris RT Scheduling Appointments ( confirming mammogram appt- no answer) Social History Tobacco Use Types Packs/Day Years Used Date Smoking Tobacco: Some Days Cigarettes 1 30 Smokeless Tobacco: Never Comments:accepted nicotine p [facility] for first time. Alcohol Use Standard Drinks/Week Comments Yes 2 (1 standard drink = 0.6 oz pur e alcohol) occassional AUDIT-C Answer Date Recorded Q1: How often do you have a drink containing alc ohol? Monthly or less 06/28/2021 Q2: How many drinks containi ng alcohol do you have on a typical day when you are drinking? 1 or 2 06/28/2021 Q3: How often do you have si x or more drinks on one occasion? Never 06/28/2021 Comments No Sex and Gender Information Value Date Recorded Sex Assigned at Not on file Legal Sex Female 3:20 AM COUPON AND BOND COLLECTION CLERK Gender Identity Not on file Sexual Orientation Not on file documented as of this encounter Plan of Treatment Not on file documented as of this encounter Visit Diagnoses Not on filedocumented in this encounter Care Teams Traffic Control Operator Relationship Specialty Start Date End Date Corby Castellano NP [address] [place] [address] PCP - General 09/01/17 10/11/21 Skyler Flores MD [address] [place] [address] PCP - General Internal Medicine 10/12/21 12/13/23 Skyler Flores MD [address] [place] [address] PCP - General Internal Medicine 12/14/23 06/30/24 Sonia Winters MD [address] [place] [address] PCP - General Family Medicine 07/01/24 Skyler Flores MD [address] [place] [address] Internal Medicine 12/14/23 Giana Her DO [address] [place] [address] Consulting Physician Obstetrics and Gynecology 06/28/21 documented as of this encounter
--- OUTSIDE RECORDS SUMMARY | 2024-11-02 12:46 | XMS_ITS ---
Care Plan - [facility] Created on: November 02, 2024 LLOYD STRANGE : 1970 Sex: Female Author Organization [facility] Address [address] [place] [address] Phone Care Team Providers Care Senior Software Quality Engineer Name Role Phone AMANDA MEJIA, ROSEANN C Unavailable [phone] REINA FORD Primary Care Provider Un available
--- OUTSIDE RECORDS SUMMARY | 2024-11-02 12:46 | XMS_ITS | Clinical Summary ---
Author Organization [facility] Address [address] [place] [address] Phone Care Team Providers Care Folder Machine Operator Name Role Phone AMANDA MEJIA, ROSEANN Lee Unavailable [phone] REINA FORD Primary Care Provider Un available Reason for Visit and Chief Complaint [Patient Encounter] Problems Includes: Problems addressed during this encounter and other active Problems All Visits Onset Date Resolved Date Provider Condition S tatus Cervical Pap Smear Positive Atypical Glandular Cells 05/26/2020 ROSEANN PATEL MD Active Last Documented On 05/26/2020 10:44AM ; [facility] Note: Unchanged Dyspepsia 03/13/2014 AIME GOODE MD Active Last Documented On 4 11:13AM ; [facility] Smoking Cigarettes 02/28/2013 AIME GOODE MD Active Last Documented On 3 10:55AM ; [facility] Note: Currently smoking a pack per day [...] On 0 10:04AM By SUN HOWARD ; [facility] Body/Hair/Skin/Nails Oral Capsule 11/18/2019 Provide r: Diagnosis: Last Documented On 0 1:56PM By SUN HOWARD ; [facility] Vitamin D3 1.25 MG (42854 UT) Oral Capsule 08/26/2019 Provider: Diagnosis: Last Documented On 9 12:49PM By DOMINICK HOWARD ; [facility] Omeprazole 20 MG Oral Tablet Delayed Release 08/08 Provider: Diagnosis: Last Documented On 08/08/2019 1:52PM By DOMINICK HOWARD ; [facility] Medications Administered Includes: Administered Medications from this [...] Active Last Documented On 0 10:03AM ; [facility] Bactrim Allergy 02/18/2011 Active Last Documented On 0 10:03AM ; [facility] Encounters Encounter Provider Location Date Check-In Time Check-Out Time Diagnosis [Patient Encounter] ROSEANN PATEL MD 07/21/2020 8:44AM 11:59PM Insurance Includes: Active Insurance Policies Plan Name Member ID Group # Subscriber Relationship Effect latrell Dates 1 - [facility] [id number] LLOYD STRANGE Self Clinical Notes Includes: Clinical Notes from this encounter No Clinical Notes Recorded
--- OUTSIDE RECORDS SUMMARY | 2024-11-02 12:47 | XMS_ITS | Referral Summary ---
Author Organization [facility] Address [address] [place] [address] Care Team Providers Care Special Class Welder Name Role Phone Skyler Flores MD Unavailable Janeth Ward DO Unavailable [phone] Sonia Winters MD Primary Care Provider [phone] Encounters Date Type Department Care Team Description 09/09/2024 2:04 PM SPRINKLER DRIVER - 09/09/2024 11:59 PM SPRINKLER DRIVER Hospital Encounter [facility] [address] [place] [address] Bitten by dog, subsequent encounter Discharge Disposition: Discharge to home or self care from Last 3 Months Allergies Active Allergy Reactions Criticality Noted Date Comments Penicillins Hives Medium Sulfamethoxazole-Trimethoprim Hives Medium Medications omeprazole (PriLOSEC) 20 mg capsule Take 20 mg by mouth daily Active cholecalciferol (VITAMIN D-3) 50,000 unit capsule Vitamin D3 1.25 MG (99770 UT) Oral Capsule QTY: 0 capsule Days: 0 Refills: 0 Written: 08/26/19 Patient Instructions: 9 Active 25/iron fum/folic/dha (-1 ORAL) Take 1 tablet by mouth daily Active ascorbic acid/vitamin E/biotin (HAIR, SKIN, NAILS WITH BIOTIN ORAL) Take 1 tablet by mouth daily Active Lactobac no.41/Bifidobac t no.7 (PROBIOTIC-10 ORAL) Take 1 tablet by mouth daily Active ibuprofen (ADVIL,MOTRIN) 600 mg tablet Take 1 tablet (600 mg total) by mouth every 6 (six) hours as needed for pain 45 tablet 1 1 Active Additional Information Patient not taking.Reported on 10/28/2022 HYDROcodone-codi taminophen (NORCO) 5-325 mg per tabletIndicatio ns:Pain Take 1-2 tablets every 4 hours as needed for pain 10 tablet 2 Active Additional Information Patient not taking.Reported on 10/28/2022 Active Problems Problem Noted Date Diagnosed Date Bilateral carpal tunnel syndrome 11/16/2021 Overview (11/16/2021): Added automatically from request for surgery [id number] Cubital tunnel syndrome on left 11/16/2021 Overview (11/16/2021): Added automatically from request for surgery [id number] Atypical glandular cells on cervical Pap smear 0 06/07/2021 Overview (06/07/2021): Added automatically from request for surgery [id number] Bronchopneumonia 03/12/2021 Smoker 03/12/2021 Acute respiratory failure with hypoxia ([facility]/H[facility]) 03/12/2021 Anal skin tag 04/30/2019 Thrombosed external hemorrhoid 04/30/2019 Sepsis due to urinary tract infection ([facility]) 09/02/2017 Acute cystitis with hematuria 09/02/2017 Dyspepsia 03/13/2014 Hypoxemia Immunizations Name Administration Dates Next Due Influenza, Quadrivalent, Split, Intramuscular Influenza, Quadrivalent, Spl it, Preservative Free, Intramuscular 07/18/2016 Social History Tobacco Use Types Packs/Day Years Used Date Smoking Tobacco: Every Day Cigarettes 1 30 Started: 10/26/1991; Last attempted to quit: 10/26/2021 Smokeless Tobacco: Never Tobacco Cessation:Ready to Q uit: Not Asked; Counseling Given: Not Answered Comments:accepted nicotine patch for first time. Alcohol Use Standard Drinks/Week Comments Yes 2 (1 standard drink = 0.6 oz pur e alcohol) occassional AUDIT-C Answer Date Recorded Q1: How often do you have a drink containing alc ohol? Never 12/07/2021 Average Number of Drinks Not on file 022 Frequency of Binge Drinking Not on file 11/17 Comments No Sex and Gender Information Value Date Recorded Sex Assigned at Not on file Legal Sex Female 3:20 AM SPRINKLER DRIVER Gender Identity Not on file Sexual Orientation Not on file Occupation Industry Job Start Date Job End Date DORS Not on file Not on file Not on file Last Filed Vital Signs Vital Sign Reading Time Taken Comments Blood Pressure 124/70 03/19/2024 1:35 PM CDT Pulse 81 12/22/2021 9:01 AM CDT Temperature 36.1 C (97 F) 12/07/2021 9:55 AM CDT Respiratory Rate 16 12/07/2021 9:55 AM CDT Oxygen Saturation 99% 12/07/2021 9:55 AM CDT Inhaled Oxygen Concentration - - Weight 70.4 kg (155 lb 3.2 oz) 03/19/2024 1:35 P M CDT Height 167.6 cm (5' 6 ) 03/19/2024 1:35 PM CDT Body Mass Index 25.05 03/19/2024 1:35 PM CDT Plan of Treatment Not on file Procedures Procedure Name Priority Date/Time Associated Diagnosis Comments US UPPER EXTREMITY RIGHT LIMITED Schedule Routine, Read Routine (OP Routine) 09/09/2024 2:34 PM SPRINKLER DRIVER Bitten by dog, subsequent encounter HEPATITIS C RNA, QUANTITATIVE, PCR Routine 06/28/2024 2:06 PM CDT SCREENING MAMMOGRAM BILATERAL W REJI Schedule Routine, Read Routine (OP Routine) 03/19/2024 2:21 PM CDT Encounter for screening mammogram for malignant neoplasm of breast IMAGING PAP AND HPV MRNA E6/E7 Routine 04/22/2021 3:22 PM CDT from Last 3 Months or Most Recently Relevant to Health Maintenance Results * US Upper Extremity Right Limited (09/09/2024 2:34 PM SPRINKLER DRIVER) Anatomical Region Laterality Modality Upper Extremities Right Ultrasound 09/12/2024 1:53 PM SPRINKLER DRIVER Narrative 09/12/2024 1:55 PM SPRINKLER DRIVER EXAM DESCRIPTION: US UPPER EXTREMITY RIGHT LIMITED REASON FOR STUDY: Bitten by dog subsequent encounter TECHNIQUE: A Dynamic assessment was performed of the right forearm by the senior accounting manager, with selected grayscale and color Doppler images acquired and recorded in PACS. COMPARISON: 06/28/2024 FINDINGS: Dynamic survey at the site of the patient's dog bite demonstrates no focal soft tissue mass or radiopaque foreign body identified. There is no focal drainable fluid collection. The underlying muscle bulk appears within normal limits. IMPRESSION: No focal soft tissue mass, radiopaque foreign body or focal drainable fluid collection identified at the site of the patient's reported dog bite. THIS IS AN ELECTRONICALLY VERIFIED FINAL REPORT 09/12/2024 1:55 PM - Electronically signed by Ke Crawford M.D. MF: [email or web address] Report ID: [id number] Reading Location: [id number] Procedure Note Ke Crawford MD - 09/12/2024 EXAM DESCRIPTION: US UPPER EXTREMITY RIGHT LIMITED REASON FOR STUDY: Bitten by dog subsequent encounter TECHNIQUE: A Dynamic assessment was performed of the right forearm bythe senior accounting manager, with selected grayscale and color Doppler images acquired and recorded in PACS. COMPARISON: 06/28/2024 FINDINGS: Dynamic survey at the site of the patient's dog bite demonstrates no focal soft tissue mass or radiopaque foreign body identified. There is no focal drainable fluid collection. The underlying muscle bulk appears withinnormal limits. IMPRESSION: No focal soft tissue mass, radiopaque foreign body or focal drainablefluid collection identified at the site of the patient's reported dog bite. THIS IS AN ELECTRONICALLY VERIFIED FINAL REPORT 09/12/2024 1:55 PM - Electronically signed by Ke MAYS: DAVON Report ID: [id number] Reading Location: [id number] us Sonia Winters MD IMG US PROCEDURES Final R esult * Hepatitis C (HCV) RNA PCR, quantitative Blood (06/28/2024 2:06 PM CDT) HCV RNA result Not Detected [facility] Comment: The quantifiable range of this assay is 15 IU/mL to 100,000,000 IU/mL (1.18 log IU/mL to 8.00 log IU/mL). Testing was performed by the [facility] [id number] HCV Test ([employer] Testing performed at [facility] Current Interpretive Data was last revised on 2021 Testing performed by: [facility], [address] [place]., [address] Blood 06/28/2024 2:06 PM CDT 06/28/2024 6:01 PM CDT Narrative [facility]EE[facility] ([place]) - 07/01/2024 11:52 AM CDT [id number] Sonia Winters MD LAB MICROBIOLOGY - GENERA L ORDERABLES Final Result [facility]AN[facility] GRISSOM ([place]) 1 [facility] Department [place] [address] [facility] * Screening Mammogram Bilateral W Reji (03/19/2024 2:21 PM CDT) Anatomical Region Laterality Modality Breast Bilateral Mammography 03/20/2024 1:08 PM CDT Impressions 03/20/2024 1:08 PM CDT There is no mammographic evidence of malignancy. A 1 year screening mammogram is recommended. BI-RADS: 1 - Negative. The patient has been or will be contacted. The patient will be entered into a reminder system with a target due date of 1 year for her next mammogram. Electronically signed by: Dank Martinez M.D. Narrative 03/20/2024 1:08 PM CDT EXAMINATION: SCREENING MAMMOGRAM BILATERAL W REJI ORDERING HEALTHCARE PROVIDER: JANETH WARD HISTORY: Routine screening mammography. COMPARISON: 12/30/2022, 20 11/07/2020 TECHNIQUE: CC and MLO views of the bilateral breasts were obtained with digital technique using breast tomosynthesis with C view. Computer aided detection was utilized. FINDINGS: DENSITY: There are scattered fibroglandular elements in the bilateral breasts. BREASTS: There are no suspicious masses, suspicious calcifications, or other suspicious findings in either breast. There has been no suspicious interval change. Janeth Ward DO IMG MAMMO PROCEDURES Fi nal Result * (ABNORMAL) Imaging Pap and HPV mRNA E6/E7 (04/22/2021 3:22 PM CDT) CLINICAL INFORMATION: [facility] Comment:Postmenopausal LMP [facility] Comment:PM Previous Pap [facility] Comment:INFORMATION NOT PROV IDED Prev. Bx [facility] Comment:INFORMATION NOT PROV IDED SOURCE: [facility] Comment:Cervix, Endocervix Pap, specimen adequacy [facility] Comment: Satisfactory for evaluation. Endocervical/transformation zone component present. Pap, general categorization (A) [facility] Comment:EPITHELIAL CELL ABNO RMALITY HPV interp (A) [facility] Comment:Atypical Glandular C ells COMMENTS [facility] Comment: This Pap test has been evaluated with computer assisted technology. Suggest clinical correlation and follow-up as clinically appropriate Claim Review Medical Director Que [facility] Comment: BKA, CT(ASCP) CT screening location: [place] [address] [place] [address] Pathologist [facility] Comment: Francisco Martinez M.D., Board Certified in Anatomic Pathology and Cytopathology. (electronic signature) Comment [facility] Comment: EXPLANATORY NOTE: The Pap is a screening test for cervical cancer. It is not a diagnostic test and is subject to false negative and false positive results. It is most reliable when a satisfactory sample, regularly obtained, is submitted with relevant clinical findings and history, and when the Pap result is evaluated along with historic and current clinical information. Human papillomavirus RNA, High Risk E6/E7 Detected (A) Not Detected [facility] Comment: Methodology: Mold Chipper-Mediated Amplification This assay detects E6/E7 viral messenger RNA (mRNA) from 14 high-risk HPV types (16,18,31,33,35,39,45,51,52,56,58,59,66,68). The analytical performance characteristics of this assay have been determined by [employer]. The modifications have not been cleared or approved by the FDA. This assay has been validated pursuant to the CLIA regulations and is used for clinical purposes. For additional information, please refer to http://education.Intale/faq/JSG413i8 (This link if provided for information/ educational purposes only.) 04/22/2021 3:22 PM CDT 04/23/2021 8:57 AM CDT Narrative [facility] - 04/26/2021 2:55 PM CDT FASTING: UNKNOWN Janeth Ward DO LAB PATHOLOGY ORDERABLE S Final Result [facility] [id number] [place] [address] [facility] [address] [place] [address] from Last 3 Months or Most Recently Relevant to Health Maintenance Insurance [employer] [facility] [employer] [facility] Advance Directives For more information, please contact: [phone] * Full Code (Latest Code Status on File) Date Activated Date Inactivated Comments 03/12/2021 9:48 PM 03/14/2021 4:19 PM * Full Code Date Activated Date Inactivated Comments 03/12/2021 9:24 PM 03/12/2021 9:48 PM * Full Code Date Activated Date Inactivated Comments 09/02/2017 12:02 AM 09/04/2017 4:20 PM Care Teams Special Class Welder Relationship Specialty Start Date End Date Sonia Winters MD [address] [place] [id number] PCP - General Family Medicine 07/01/24 Skyler Flores MD Internal Medicine 12/14/23 Janeth Ward DO [address] [place] [id number] Consulting Physician Obstetrics and Gynecology 06/28/21
--- OUTSIDE RECORDS SUMMARY | 2024-11-02 12:47 | XMS_ITS | Data Portability ---
Author Organization Ava BENÍTEZ Address [address] [facility] [place] [address] Care Team Providers Care Computer Aided Design Technician Name Role Phone CHERRIE DODGE Orthopedic Surgeon [phone] Assessment Encounter Date Assessment Date Assessment LastModified by Organization Details LastModified Time 06/13/2024 06/13/2024 Follow-up as previously scheduled to establish care [email or web address] Not available 06/18/2024 00:06:01 06/27/2024 06/27/2024 Follow-up in 1 month for further management [email or web address] Not available 07/02/2024 15:23:08 09/04/2024 09/04/2024 Follow-up in procedure clinic for steroid shot [email or web address] Not available 09/05/2024 18:21:15 Plan of Treatment Reminders Order Date Submit Date Provider Last Modified By Organization Details Last Modified Time Details Appointments None record ed. Lab CBC 2023 024 [facility], [address] [facility] [address], [place], [address], 17:24:34 CMP, serum or plasma 2023 024 [facility], [address] [facility], [facility] 2, [place], [address], 17:24:34 ESR (eryth rocyte sedime ntatio n rate), blood 2023 024 [email or web address], [address] [facility] [address], [place], [address], 4 15:04:02 C reacti ve protei n, QN, serum or plasma 2023 [email or web address], [address] [facility], [facility] 2, [place], [address], 4 15:04:18 ccp (cycli c citrul linate d peptid e) iga+ig g, serum 2023 [facility], [address] [facility], [facility] 2, [place], [address], 4 11:47:55 rf (rheum atoid factor ), serum 2023 [facility], [address] [facility], [facility] 2, [place], [address], 4 15:04:27 HIV 1 + 2, meanin gful use set 2023 [facility], [address] [place] [address], [address], [place], [address], 4 15:05:10 RPR (rapid plasma reagin ), serum 2023 lgoodMr [facility], [address] [place] [address], [address], [place], [address], 4 15:05:10 HBsAg (hepat itis B surfac e Ag), EIA, serum 2023 lgoodMr [facility], [address] [place] [address], [address], [place], [address], 4 15:05:10 Hepati tis C IgG Ab, qual, serum 2023 lgoodMr [facility], [address] [place] [address], [address], [place], [address], 4 15:05:10 CMP, serum or plasma 2023 024 [facility], [address] [place] [address] 2, [place], [address], 4 00:21:55 lipid panel, serum 2023 024 [facility], [address] [place] [address] 2, [place], [address], 4 00:21:55 CBC w/ auto diff 2023 024 [facility], [address] [place] [address] 2, [place], [address], 4 00:21:55 Referral physic al therap ist referr al - chroni c low back, hip, should er, and knee pain, possib le limb length discre pancy 2023 024 [facility], [address], [place], [address], 5 16:21:32 occupa tional therap ist referr al - right hand functi on after dog bite 2023 025 [facility], [address] [facility] , [place], [address], 5 11:38:31 orthop edic surgeo n referr al - painfu l nodule in right forear m after dog bite 2023 024 [facility] Orthopedic Surgery, [address] [facility], [facility] [address], [place], [address], 5 12:55:02 dermat ologis t referr al 2023 024 [facility] (Dermatology Cam), [address] [place] [address], [address], [place], [address], 4 17:36:01 orthop edic surgeo n referr al 2023 [facility] Geovanny Jacobsen ACCORDION REPAIRER, [address] [facility] , [address], [place], [address], 4 17:20:42 Procedures None record ed. Surgeries None record ed. Imaging XR, knee, 3 view 2023 [facility], [address] [facility] [place], [address], 5 16:19:33 US, forear m - painfu l nodule on right forear m 2023 024 [facility], [address] [facility] [place], [address], 4 09:15:59 US, upper extrem ity - soft tissue nodule on right forear m 2023 024 [facility], [address] [facility] [place], [address], 4 14:38:50 XR, forear m, 2 view - dog bite, rule out foreig n body 2023 024 [facility], [address] [facility] [place], [address], 4 14:15:38 XR, should er, 2 or more view 2023 024 [facility] ER Scheduling, [address] [facility] [place], [address], 4 07:52:51 Medication Orders Solu-M edrol (PF) 40 mg/mL soluti on for inject ion 2023 024 [email or web address] Not available 4 11:40:22 famoti dine 40 mg tablet 2023 024 [id number], [address] [place], [id number], 17:27:38 famoti dine 20 mg tablet 2023 024 [facility][id number], [address] [place], [place], [id number], 17:27:34 Calciu m 600 + D(3) 600 mg-10 mcg (400 unit) tablet 2023 [id number], [address] [place], [place], [id number], 09:12:07 Patient TargetsNo targets recorded. Patient Instructions Encounter Date Encounter Id Patient Instructions Last Modified By Organization Details Last Modified Time 11/16/2023 [id number] influenza (flu) vaccine: care instructions ssuthan Not available 11/16/2023 09:38:12 deciding about using medicines to quit smoking ssuthan Not available 11/16/2023 09:38:12 Quitting Tobacco : Care Instructions ssuthan Not available 11/16/2023 09:38:12 shoulder stretches: exercises ssuthan Not available 11/16/2023 09:38:11 rotator cuff: exercises ssuthan Not available 11/16/2023 09:38:12 carpal tunnel syndrome: care instructions ssuthan Not available 11/16/2023 09:38:11 carpal tunnel syndrome: exercises ssuthan Not available 11/16/2023 09:38:12 06/13/2024 [id number] I was present fo r the procedure and agree with the documented procedure and plan. Robert Allen MD Not available 06/18/2024 19:00:20 06/27/2024 [id number] Attending Physician Attestation S: 53 yo F here after recent dog bite. Had lump on right forearm noted at suture removal visit; XR ordered but not yet done. Has right hand pain with movement; also reports numbness. Right-handed. Has back, hips, knee pain, which she attributes to arthritis. Takes ibuprofen. Also has heartburn that she takes omeprazole for. Has chronic intermittent numbness of inguinal creases without incontinence. O: 2-3 cm right forearm nodule, firm without fluctuance. Normal wrist and finger ROM and strength bilaterally. No point tenderness over spine. Neg straight leg raise bilaterally. A/P: Right forearm nodule - F/u XR and order soft tissue US. Refer to ortho. Right hand pain - Refer to OT for hand therapy. Polyarthritis - Questionable report of osteoporosis; follow up outside records. DDx includes OA, RA, lupus. F/u CMP, CBC, ESR, CRP, RF, anti-CCP. Refer to PT. I personally saw the patient with the resident. Plan discussed with resident as documented in my brief note above. Mirella Mckinney MD [email or web address] Not available 07/22/2024 14:27:25 09/04/2024 [id number] Attending Physician Attestation I did not personally see or examine the patient with the resident. I was physically present to provide indirect supervision through entire encounter. I have reviewed the documentation and agree with the history, physical findings, work-up, and medical decision making as recorded. Radha Duncan MD [email or web address] Not available 09/04/2024 09:54:21 09/06/2024 [id number] I was present fo r the procedure and agree with the documented procedure and plan. Robert Allen MD Not available 09/20/2024 06:01:28 Reason for Referral Lathe Machine Operator Referral for L esion of skin of face Referring Physician: Skyler Flores, Internal Medicine, Encounter Date: 11/16/2023 Orthopedic Surgeon Referral for Carpal tunnel syndrome of right wrist Referring Physician: Skyler Flores, Internal Medicine, Encounter Date: 11/16/2023 Occupational Therapist Refer ral for Dog bite of forearm right hand function after dog bite right hand function after dog bite Referring Physician: Sonia Erazo, Lapel Stitcher, Encounter Date: 06/27/2024 Orthopedic Surgeon Referral for Dog bite of forearm painful nodule in right forearm after dog bite painful nodule in right forearm after dog bite Referring Physician: Sonia Erazo Lapel Stitcher, Encounter Date: 06/27/2024 Physical Therapist Referral for Chronic back pain chronic low back, hip, shoulder, and knee pain, possible limb length discrepancy chronic low back, hip, shoulder, and knee pain, possible limb length discrepancy Referring Physician: Sonia Erazo Lapel Stitcher, Encounter Date: 06/27/2024 Results Created Date Observation Date Name Description Value Unit Range Abnormal Flag Note LastModifiedBy Organization Detail LastModifiedTime 07/03/20 24 06/28/2024 XR, forea rm, 2 view No observ ation record ed. [address] [place], [address], 07/11/2024 09:37:48 07/08/2007/02/2024 XR, forea rm, 2 view No observ ation record ed. [address] [place], [address], 07/09/2024 09:33:13 09/16/20 24 09/09/2024 US, forea rm No observ ation record ed. [address] [place], [address], 10/18/2024 15:20:45 Result Notes None recorded. Problems Name Problem SNOMED Code Status Onset Date Resolution Date Notes Provider Name and Address Organization Details Recorded Time Hemorrhoi ds 49133547 Active 2018 Fatmata Galindo MA [facility], [place] - [facility] 0 15:55:24 Tobacco dependenc e syndrome 97415231 Active 2020 Sonia Erazo MD Attn: Ely faust,[address] [place], [address], [facility] 4 00:04:27 Tinea corporis 37584396 Completed 202106/17/2024 Sonia Erazo MD Attn: Ely [address]ust[address] [place], [address], [place] [facility] 4 00:04:32 Dog bite of forearm 532740168 Active 2023 Sonia Erazo MD Attn: Ely govind,[address] [facility], [place], [address], [place] [facility] 4 00:04:21 Cocaine abuse 96591438 Active 2023 Sonia Erazo MD Attn: Ely govind,[address] [facility], [place], [address], [place] [facility] 4 15:40:37 Heartburn 71945832 Active 2023 Sonia Erazo MD Attn: Ely govind,[address] [place], [address], [place] [facility] 4 15:40:47 Venereal disease screening Active 2023 Sonia Erazo MD Attn: Ely faust,[address] [place], [address], [place] [facility] 4 15:16:50 Multiple joint pain 04324066 Active 2023 Sonia Erazo MD Attn: Ely faust,[address] [place], [address], [place] [facility] 4 15:40:23 Chronic back pain 270480006 Active 2023 Sonia Erazo MD Attn: Ely faust,[address] [place], [address], [place] [facility] 4 15:40:38 Osteopeni a 769821477 Active 2023 Sonia Erazo MD Attn: Ely faust,[address] [place], [address], [place] [facility] 4 15:40:46 Leg length inequalit y 41523073 Active 2023 Sonia Erazo MD Attn: Ely faust,[address] [facility] [place], [address], [place] [facility] 4 15:40:43 Nodule of subcutane ous tissue of right forearm 827075794537 49990 Active 2023 Sonia Erazo MD Attn: Accountin g,[address] [facility], [place], [address], [place] [facility] 4 19:01:24 Osteoarth ritis of left knee joint 319388516569 109 Active 2023 Sonia Erazo MD Attn: Accountin g,[address] [facility], [place], [address], [place] [facility] 4 19:01:22 Tobacco user 764868917 Active Sonia Erazo MD Attn: Accountin g,[address] [facility], [place], [address], [place] [facility] 4 00:04:26 Shoulder pain 74222886 Active Sonia Erazo MD Attn: Accountin g,[address] [facility], [place], [address], [place] [facility] 4 00:04:35 Opioid dependenc e 44345500 Active Fatmata Galindo [place] null, [place] [facility] 0 15:55:24 Creatinin e clearance -glomerul ar filtratio n outside reference range 229743276 Completed 07/02/2024 Sonia Erazo MD Attn: Accountin g,[address] [facility], [place], [address], [place] [facility] 4 15:40:34 Bunion 308152414 Active Fatmata Galindo [place], [place] [facility] 0 15:55:24 Problem Notes None recorded. Procedures Surgical History Date Name Laterality Status Provider Name and Address Organization Details Recorded Time 09/06/20 24 Joint Injection completed GWENDOLYN SEWELL DO Attn: Accounting,[address] [place], [address], [place] [facility] 09/06/2024 12:08:55 06/13/20 24 Suture/Staple removal completed Sonia Erazo MD Attn: Accounting,[address] [facility], [place], [address], [place] [facility] 06/17/2024 23:56:31 04/18/20 24 Date of Last Mammogram completed Lucille [place] [facility] 09/04/2024 09:13:14 12/08/19 22 Carpal tunnel surgery completed Lore Gayle [place] [facility] 12/23/2021 12:12:26 09/18/19 22 Total hysterectomy completed Lucille [place] [facility] 09/04/2024 09:14:34 09/18/18 95 Knee Surgery completed Fatmata Galindo [place] [facility] 12/30/2015 15:12:17 procedure on cervix [place] LEE [place]houry [place] [facility] 07/16/2021 14:16:25 Imaging Results Imaging Date Name Status LastModified by Organiz ation Details LastModified Time 06/28/2024 XR, forearm, 2 view completed [address] [place], [address], 07/11/2024 09:37:48 07/02/2024 XR, forearm, 2 view completed [address] [place], [address], 07/09/2024 09:33:13 09/09/2024 US, forearm completed [address] [place], [address], 10/18/2024 15:20:45 Procedure Notes None recorded. Medical Equipment None Reported. Allergies Allergen ID Allergen Name Allergen Category Reaction Reaction Severity Criticality Documentation Date Start Date Code Code System Note Provider Name and Address Organization Details Recorded Time 592260 meloxicam medicatio n abdominal pain Not available Not available 06/27/2024 93160 RxNorm Not Available Not Available Not Available 37048 Product containin g penicilli n and antibioti c (product) medicatio n hives Not available Not available 12/30/2015 08780 05 SNOMED Not Available Not Available Not Available 22699 Bactrim medicatio n hives Not available Not available 12/30/2015 38626 9 RxNorm Not Available Not Available Not Available 69740 diclofena c Not available Not available Not available Not available 01/14/2016 3355 RxNorm stoma ch irrit ation Not Available Not Available Not Available Medications Name Sig Start Date Stop Date Status Note LastModified by Organization Details LastModified Time cyclobenza madiha 10 mg tablet Take 1 tablet every day by oral route as needed for 30 days. 04/16 completed Not Available Not Available Not Available nicotine 14 mg/24 hr daily transderma l patch 06/29 completed Not Available Not Available Not Available triamcinol one acetonide 0.5 % topical cream APPLY TO AFFECTED AREA TWICE A DAY FOR 14 DAYS NEEDED completed Not Available Not Available Not Available hydrocodon e 5 mg-acetami nophen 325 mg tablet 12/23 completed Not Available Not Available Not Available famotidine 40 mg tablet Take 1 tablet every day by oral route for 30 days. active Not Available Not Available No t Available prednisone 20 mg tablet TAKE 1 TABLET BY MOUTH ONCE DAILY FOR 5 DAYS 07/16 completed Not Available Not Available Not Available triamcinol one acetonide 0.1 % topical cream APPLY A THIN LAYER TO THE AFFECTED AREA(S) BY TOPICAL ROUTE TWICE DAILY 02/04 completed Not Available Not Available Not Available meloxicam 7.5 mg tablet Take 1 tablet twice a day by oral route. 07/16 completed Not Available Not Available Not Available oxycodone- acetaminop hen 5 mg-325 mg tablet TAKE 1 TO 2 TABLETS BY MOUTH EVERY 4 HOURS NEEDED FOR PAIN 12/23 completed Not Available Not Available Not Available famotidine 20 mg tablet Take 1 tablet twice a day by oral route for 30 days. 09/04 completed Not Available Not Available Not Available doxycyclin e monohydrat e 100 mg capsule 06/29 completed Not Available Not Available Not Available econazole nitrate 1 % topical cream APPLY TOPICALL Y TO THE AFFECTED AND SURROUND ING AREAS OF SKIN TWICE DAILY completed Not Available Not Available Not Available cephalexin 500 mg capsule TAKE 1 CAPSULE BY MOUTH FOUR TIMES DAILY FOR 7 DAYS FOR INFECTIO N OF THE SKIN AND/OR SOFT TISSUE 06/27 completed Not Available Not Available Not Available nicotine 21 mg/24 hr daily transderma l patch 12/23 completed Not Available Not Available Not Available diclofenac potassium 50 mg tablet Take 1 tablet twice a day by oral route. active Not Available Not Available No t Available docusate sodium 100 mg capsule TAKE 1 CAPSULE BY MOUTH TWICE DAILY WITH A GLASS OF WATER 12/23 completed Not Available Not Available Not Available gabapentin 300 mg capsule TAKE 1 CAPSULE BY MOUTH ONCE DAILY AT BEDTIME completed Not Available Not Available Not Available hydrocorti sone 2.5 % topical cream APPLY A THIN LAYER TO THE AFFECTED AREA(S) BY TOPICAL ROUTE 2 TIMES PER DAY 05/21 completed Not Available Not Available Not Available Tylenol-Co deine #3 300 mg-30 mg tablet Take 1 tablet twice a day by oral route as needed. 04/16 completed Not Available Not Available Not Available ibuprofen 600 mg tablet TAKE 1 TABLET BY MOUTH EVERY 6 HOURS NEEDED FOR PAIN 12/23 completed Not Available Not Available Not Available levofloxac in 750 mg tablet 09/26 completed Not Available Not Available Not Available ketoconazo le 2 % topical cream APPLY TO THE AFFECTED AREA(S) BY TOPICAL ROUTE ONCE DAILY completed Not Available Not Available Not Available cefdinir 300 mg capsule TAKE 1 CAPSULE BY MOUTH TWICE DAILY FOR 3 DAYS 07/16 completed Not Available Not Available Not Available naproxen 500 mg tablet Take 1 tablet twice a day by oral route. 04/16 completed Not Available Not Available Not Available nicotine 7 mg/24 hr daily transderma l patch 06/29 completed Not Available Not Available Not Available nicotine 21mg/24hr- 14mg/24hr- 7mg/24hr daily transderm patches,se quentl Apply 1 patch every day by transder mal route. 06/29 completed Not Available Not Available Not Available nitrofuran toin monohydrat e/macrocry stals 100 mg capsule Take 1 capsule twice a day by oral route for 7 days. 06/24 completed Not Available Not Available Not Available Calcium 600 + D(3) 600 mg-10 mcg (400 unit) tablet Take 1 tablet every day by oral route for 90 days. 2023 active Pt states she is no longer taking Not Available Not Available Not Available Solu-Medro l (PF) 40 mg/mL solution for injection Take 40 mg by injectio n route. 2023 active Not Available Not Available Not Avai lable Narcan 4 mg/actuati on nasal spray CALL 911. ADMINIST ER A SINGLE SPRAY INTRANAS ALLY INTO ONE NOSTRIL UPON SIGNS OF OPIOID OVERDOSE . MAY REPEAT AFTER 3 MINUTES IF NO RESPONSE . completed Not Available Not Available Not Available Vitals Date Recorded Body weight Body temperature Heart rate Respiratory rate Systolic blood pressure Diastolic blood pressure Provider Name and Address Organization Details Last Updated DateTime 4 64351.2 2 g 96.9 [degF] 92 /min 14 /min 119 mm[Hg] 78 mm[Hg] Lore Gayle [place] [facility] 4 09:11:23 Date Recorded Body height Body mass index (BMI) Body weight Heart rate Body temperature Respiratory rate Systolic blood pressure Diastolic blood pressure Provider Name and Address Organization Details Last Updated DateTime 4 175.26 cm 22.6 kg/m2 54424.6 3 g 68 /min 98.3 [degF] 18 /min 130 mm[Hg] 72 mm[Hg] Megan Robles [place] [facility] 4 11:54:56 Date Recorded Body height Body mass index (BMI) Body weight Body temperature Respiratory rate Heart rate Systolic blood pressure Diastolic blood pressure Provider Name and Address Organization Details Last Updated DateTime 4 175.26 cm 22.6 kg/m2 20056.3 3 g 97.1 [degF] 16 /min 77 /min 113 mm[Hg] 75 mm[Hg] Lucille Cornelius MA [facility] 4 10:52:54 Date Recorded Body height Body mass index (BMI) Body weight Body temperature Heart rate Respiratory rate Systolic blood pressure Diastolic blood pressure Provider Name and Address Organization Details Last Updated DateTime 4 175.26 cm 21.6 kg/m2 97048.9 4 g 97.3 [degF] 90 /min 16 /min 117 mm[Hg] 78 mm[Hg] Lucille Cornelius MA [facility] 4 09:15:51 Date Recorded Body height Body mass index (BMI) Body weight Body temperature Heart rate Respiratory rate Systolic blood pressure Diastolic blood pressure Provider Name and Address Organization Details Last Updated DateTime 4 175.26 cm 22.1 kg/m2 37506.3 6 g 98.3 [degF] 80 /min 18 /min 124 mm[Hg] 86 mm[Hg] Megan Robles MA [facility] 4 11:40:47 Social History Question Answer Notes LastModified by Organizat ion Details LastModified Time Tobacco Smoking Status Current Some Day Smoker Lore Gayle MA [facility] 06/24/2022 12:33:39 Do You Have An Advance Directive? No Information not available 07/16/2021 What Is Your Level Of Alcohol Consumption? Occasional Information not available 07/16/2021 Are You Blind Or Do You Have Difficulty Seeing? No Information not available 07/16/2021 What Is Your Level Of Caffeine Consumption? Moderate Information not available 07/16/2021 In The 14 Days Before Symptom Onset, Have You Had Close Contact With A Laboratory-confi rmed COVID-19 While That Case Was Ill? No Information not available 07/16/2021 In The 14 Days Before Symptom Onset, Have You Had Close Contact With A Person Who Is Under Investigation For COVID-19 While That Person Was Ill? No Information not available 07/16/2021 Have You Been To An Area Known To Be High Risk For COVID-19? No Information not available 07/16/2021 Are You Currently Employed? Yes Information not available 07/16/2021 Are You Deaf Or Do You Have Serious Difficulty Hearing? No Information not available 07/16/2021 What Type Of Diet Are You Following? REGULAR Information not available 07/16/2021 Do You Or Have You Ever Used E-cigarettes Or Vape? Former User Of Electronic Cigarettes Information not available 06/27/2024 Are There Any Guns Present In Your Home? Yes Information not available 07/16/2021 Marital Status Single Informatio n not available 12/30/2015 What Was The Date Of Your Most Recent Tobacco Screening? 09/06/2024 Information not available 09/06/2024 What Is Your Relationship Status? Single Information not available 07/16/2021 Do You Use Your Seat Belt Or Car Seat Routinely? Yes Information not available 07/16/2021 Do You Have Smoke And Carbon Monoxide Detectors In Your Home? Yes Information not available 07/16/2021 Do You Or Have You Ever Used Smokeless Tobacco? Never Used Smokeless Tobacco Information not available 06/24/2022 How Much Tobacco Do You Smoke? 1 PPD Information not available 12/30/2015 Do You Feel Stressed (tense, Restless, Nervous, Or Anxious, Or Unable To Sleep At Night)? [id number] Information not available 07/16/2021 Do You Use Any Illicit Or Recreational Drugs? No Cocaine- Pt States She Is Not Currently Taking Information not available 09/04/2024 Do You Use Sunscreen Routinely? No Information not available 07/16/2021 Has Tobacco Cessation Counseling Been Provided? Yes Information not available 06/13/2024 On What Date Was Tobacco Cessation Counseling Provided? 06/27/2024 Information not available 06/27/2024 How Many Years Have You Smoked Tobacco? 25 Information not available 12/30/2015 Do You Or Have You Ever Used Any Other Forms Of Tobacco Or Nicotine? Yes Information not available 06/24/2022 Sex: Female Functional Status Question Answer Note LastModified by Organization D etails LastModified Time Are you able to care for yourself? Yes Information n ot available 07/16/2021 Mental Status None recorded. Family History Relationship Description Onset Age of this Age Resolved Age Notes LastModified by Organization Details LastModified Time Father Hypertensive disorder [email or web address] Not available 2015 15:35:57 Mother Open cardiac valvotomy ssuthan Not available 2020 14:53:10 Brother Malignant tumor of prostate ssuthan Not available 2020 14:53:28 Brother Chronic obstructive pulmonary disease ssuthan Not available 2020 14:53:39 Notes:06/27/24 Medical History Condition Response Coronary Artery Disease N Other N Atrial Fibrillation N High Blood Pressure N Thyroid Problems N Kidney or Bladder Problems N Depression N COPD N Blood Clots N GI Problems N Skin Problems N Anemia N Heart Attack ([place]) N Diabetes N Anxiety Disorder N Muscle, Joint, or Bone Problems N Seizures/Epilepsy N Acid Reflux (GERD) N Cancer N Stroke N Allergies N Asthma N High Cholesterol N Hepatitis N Liver Disease N Headaches N Osteoporosis N Heart Failure N Gynecological History Statement/Question Response Date of Last Pap Smear Current Control Method Hysterectom y Date of Last Mammogram 04/18/2024 Date of LMP Obstetrics History GPAL:G 0 P 0 0 0 0 Immunizations Vaccine Type Date Status Note Provider Nam e and Address Organization Details Recorded Time Influenza, split virus, quadrivalent, PF 6 completed Not Available [facility] 10/05/2019 02:39:52 Tdap 4 completed RADHA DUNCAN MD Attn: Accounting,[address] [place], [address], [place] [facility] 09/04/2024 09:47:54 Influenza, split virus, quadrivalent, preservative 7 completed Not Available [facility] 10/05/2019 02:39:47 Influenza, split virus, quadrivalent, preservative 1 completed LEE [place]hour[place], [place] [facility] 07/16/2021 16:30:25 COVID-19, mRNA, LNP-S, PF, 30 mcg/0.3 mL dose 1 completed Gabby Melo [place], [place] [facility] 07/16/2021 16:33:39 COVID-19, mRNA, LNP-S, PF, 30 mcg/0.3 mL dose 1 completed Leticia Bran[place] [facility] 08/09/2021 09:25:51 Influenza, split virus, quadrivalent, preservative 2 completed Lore Gayle [place], [place] [facility] 06/24/2022 16:47:17 Influenza, split virus, quadrivalent, preservative 4 completed Skyler Flores MD Attn: Accounting,[address] [facility], [place], [address], [facility] - [facility] 11/16/2023 13:42:00 Past Encounters Encounter ID Performer Location Encounter Start Date Encounter Closed Date Diagnosis/Indication Diagnosis SNOMED-CT Code Diagnosis ICD10 Code Diagnosis Note [id number] [facility] [address] [place] [address] 1 12/30/2015 14:34:10 12/30/2015 16:25:26 Adult health examination 770890560 Z00.00 Tobacco user 515343018 Z 72.0 Shoulder pain 66853788 M 25.512 [id number] [place] [address] [place] [address] 1 01/14/2016 11:01:10 01/14/2016 17:59:41 Shoulder pain 37760498 M25.512 [id number] [place] [address] [place] [address] 1 02/04/2016 15:18:01 02/04/2016 19:57:05 Shoulder pain 02054996 M25.512 [id number] [place] [address] [place] [address] 1 03/02/2016 08:44:36 03/02/2016 14:28:23 Shoulder pain 49289851 M25.512 Opioid dependence 784718 00 F11.20 [id number] [place] [address] [address] 1 05/24/2016 15:19:30 05/24/2016 17:59:15 Bunion 807414859 M20.10 Tobacco user 836130366 Z 72.0 Eruption 289513080 R21 [id number] [place] [address] [address] 1 07/18/2016 14:23:17 07/18/2016 17:14:43 Administration of influenza vaccine 90486850 Z23 Pain in left knee 501778 8074 80050 M25.558 [id number] [place] [address] [address]165 1 06/29/2017 09:56:56 07/03/2017 12:31:56 Joint pain in left hand 2488517779 353553 M25.542 Adult heal th examination 413200505 Z00.00 Administra tion of influenza vaccine 95594317 Z23 [id number] Agustin Chaudhary MD [facility] [address] [place] [address] 09/26/2017 14:56:15 09/29/2017 09:39:50 Injury of finger 39962872 S69.92XD Swelling o f first metatarsal joint of hallux of right foot 8661626042 265805 M25.474 Sciatica 53669857 M54.31 [id number] Corby Mccoy 14 IM [address] [facility] [place] [address] 04/16/2019 14:00:02 04/17/2019 12:50:44 Hemorrhoids 77047811 K64.9 Psoriasis 3439159 L40.9 Adult heal th examination 031483451 Z00.00 [id number] Corby Mccoy 14 IM [address] [facility] [place] [address] 05/21/2020 08:28:49 05/22/2020 13:13:53 Pain of right wrist 6656610601 41065 M25.704 [id number] MD Derek Jones 14 IM [address] [facility] [place] [address] 07/16/2021 13:46:19 07/19/2021 15:51:38 Carpal tunnel syndrome 30840316 G56.03 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 tin and nerve conduction study Tobacco de pendence syndrome 09407666 F17.200 Recommend to slow down and quit at the earliest- upto 1 PPD Needs infl uenza immunization 887339225 Z28.3 no issue before Long-term drug therapy 971334567 Z79.787 [id number] KIMBERLI Maxwell 14 IM [address] [facility] [place] [address] 07/16/2021 15:18:49 07/19/2021 12:55:39 Administration of SARS-CoV-2 mRNA vaccine 3755377418 Z23 [id number] Linda Coyne RN Derek 14 IM [address] [facility] [place] [address] 08/06/2021 11:06:39 08/10/2021 17:46:32 Administration of SARS-CoV-2 mRNA vaccine 1783140913 Z23 [id number] MD Derek Jones 14 IM [address] [facility] [place] [address] 12/23/2021 11:58:58 12/24/2021 15:27:45 Carpal tunnel syndrome 90253932 G56.03 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 Pruritic rash 09774448 L 28.2 R/upper post thighuse the cream [id number] MD Derek Jones 14 IM [address] [facility] [place] [address] 02/04/2022 13:54:09 02/07/2022 13:45:37 Tinea corporis 81110546 B35.4 L/upper thigh post at 2 spotsuse the cream [id number] Skyler Flores MD [place] 14 IM [address] [facility] [place] [address] 06/24/2022 12:20:17 06/27/2022 14:57:21 Tobacco dependence syndrome 40323283 F17.200 Recommend to slow down and quit at the earliest- did quit 2 months ago as of 12/23/21 picked againg upto 3/days Tinea corporis 82123924 B35.4 L/upper thigh post at 2 spotsuse the creamresolved Long-term drug therapy 783776030 Z79.899 Administra tion of influenza vaccine 55388952 Z23 no issue before Carpal rui dona syndrome of right wrist 9307624719 82303 G56.01 Awaiting to schedule Travis giang at bedtime Screening for malignant neoplasm of colon 105198138 Z12.11 [id number] MD Derek Jones 14 IM [address] [facility] [place] [address] 11/16/2023 09:00:51 11/17/2023 07:24:00 Tobacco dependence syndrome 64133185 F17.200 Recommend to slow down and quit at the earliest- did quit 2 months ago as of 12/23/21 picked again upto 1/2 PPD Lesion of skin of face 7358003422 06 L98.9 ?Senile keratosis vs basal cell- Refer for excision biopsy Shoulder j oint painful on movement 528779340 M25.519 L/side: R/o DJD vs tendinosis X raystrengt hening exerciseCt with OTC ibuprofen with meal Long-term drug therapy 838950775 Z79.899 Administra tion of influenza vaccine 63433794 Z23 no issue before Carpal rui dona syndrome of right wrist 1041700247 58503 G56.01 Awaiting to schedule surgeryWan referral again [id number] MD Derek Jolley 14 IM [address] [facility] [place] [address] 06/13/2024 11:43:39 06/20/2024 08:56:33 Dog bite of forearm 981282842 W54.0XXD Patient presenting for suture removal, 11 days post dog-bite. Removed without complicati on. Overall well-appro ximated with good healing. No sign of acute infection. Palpable mass and tenderness concerning for retained body. Other differenti als include persistent infection, but seem less likely at this point. Also with persistent numbness in right hand. Suspect nerve damage. - alternate ibuprofen 600 mg and tylenol 1000 mg every 3 hours during the day for pain management , reviewed schedule- x-ray to rule out retained body- return precaution s given for signs of infection- consider nerve conduction study after complete healing- follow-up with animal control to assess need for rabies prophylaxi s [id number] MD Derek JONES 14 [address] [facility] [place] [address] 06/27/2024 10:41:58 07/23/2024 08:56:35 Multiple joint pain 70398492 M25.50 Chronic low back, hip, shoulder, and knee pain. No acute trauma or current red flag symptoms. May be related to possible limb length discrepanc y or osteopenia . Also cannot rule out bony metastasis given history of possible cervical cancer. Other differenti als include rheumatoid or other autoimmune arthritis. - check CBC, CMP, ESR, CRP, anti-ccp, RA- referral to PT as below- obtain previous medical records detailing hysterecto my, bone scan- continue ibuprofen and tylenol for symptomati c management Chronic back pain 390856 002 G89.29 No fever, chills, saddle anesthesia , or incontinen ce. Some intermitte nt numbness along inguinal crease and outside of right thigh. Associated hip, shoulder, and knee pain as above. Also with possible limb length discrepanc y and osteopenia . - trial of physical therapy- blood work as above to evaluate for other types of arthritis- obtain previous medical records detailing hysterecto my, bone scan- continue ibuprofen and tylenol for symptomati c management Dog bite of forearm 2837 [address] W54.0XXD Patient presenting for follow-up after suture removal, laceration s healing appropriat nahum.Still with palpable mass and tenderness concerning for retained body. Other differenti als include persistent infection, but seem less likely at this point. Also with persistent numbness in right hand concerning for nerve damage. Normal strength and perfusion, which is reassuring . Also cannot rule out injury to tendon.Dog has been quarantine d appropriat nahum with no sign of rabies. - soft tissue x-ray of forearm, previously ordered- soft tissue ultrasound of forearm for further characteri zation- alternate ibuprofen 600 mg and tylenol 1000 mg every 3 hours during the day for pain management , reviewed schedule- return precaution s given for signs of infection- consider nerve conduction study after complete healing- referral to OT for right hand therapy- referral to orthopedic surgery for further management of nodule Venereal d isease screening 425629081 Z11.3 Discussed HIV and other STI screening as per USPSTF guidelines . Patient is agreeable to screening today. Heartburn 53940053 R12 Long-term OTC omeprazole therapy due to heartburn. No nausea, vomiting, or signs of occult blood in stool. May be exacerbate d by chronic NSAID use. - trial pepcid as step-down therapy- patient counselled on trigger identifica tion and avoidance, as well as taking NSAIDs with food- CMP and CBC as above Tobacco de pendence syndrome 85067377 F17.200 Smoker 1 PPD x20 years, wishes to quit. Agreeable to medical management . Will discuss further at next visit after getting baseline labs. Cocaine abuse 99121367 F 14.10 Around 1 time per month, reportedly helps with joint pain. Counselled on cessation, especially given the risk of heart attack, stroke, or exposure to other substances . Leg length inequality 45 083322 M21.70 Patient reports history of right leg shorter than left, had shoe insert but lost it. May be contributo ry to chronic back and multiple joint pain. Not fully addressed due to time constraint s. Would likely benefit from shoe insert and PT. Plan to assess further at next appointmen t. Management of multiple joint pains as above. Osteopenia 296964873 M85 .80 History of osteopenia per patient, unknown severity. Strong family history.Un known if patient still has ovaries after total hysterecto my.Taking OTC vitamin D and calcium supplement . - obtain records of previous bone scan, consider repeat- obtain online merchandising specialist records detailing whether ovaries are present- continue vitamin D and calcium supplement ation, will prescribe [id number] MD Derek BALDERAS 14 IM [address] [facility] [address] [place] [address] 09/04/2024 09:00:08 09/10/2024 11:48:42 Nodule of subcutaneous tissue of right forearm 4368429769 9295230 R22.31 S/p dog bite in May 2024 with rabies ruled out, laceration s well-heale d.Now with persistent painful nodule in mid-right forearm, tender, firm, mobile.Con cern for retained foreign body.X-ray WNL. - US soft-tissu e for further evaluation Heartburn 67101082 R12 Chronic heartburn, controlled on omeprazole 40 mg daily. Will continue, especially when on NSAIDs as above. - famotidine 40 mg daily Osteoarthr itis of left knee joint 7592901593 65484 M17.12 Chronic symptoms, no trauma, tenderness of joint lines, worsening with movement suggestive of osteoarthr itis.Swell ing characteri stic of small parks's cyst.No findings characteri stic of acute injury, infection, or DVT.Hx arthroscop y 30 years ago. - schedule procedure clinic for injection- continue alternatin g tylenol and ibuprofen for symptomati c management - physical therapy previously ordered [id number] MD Derek Jolley 14 IM [address] [facility] [place] [address] 09/06/2024 11:30:32 09/20/2024 09:32:08 Osteoarthritis of left knee joint 6287185806 93936 M17.12 Left knee injection performed, tolerated wellKnee xray obtainedRe turn and ED precaution s discussedF ollow up with PCP after course of ordered PT Health Concerns Section Related Observation LastModified by Organization Detai ls LastModified Time None Recorded Concern Status LastModified by Organization Details LastModified Time None Recorded Advance Directives Directive N: Payers Encounter Date Sequence Insurance Name Policy Number Policy Rizvi Covered Member ID Rizvi Member ID Guarantor Name 11/16/2023 1 [employer] [place] ON OR AFTER 2020 (MEDICAID REPLACEMENT - HMO) Nina Higinio [id number] Nina Higinio 06/27/2024 1 [facility] [place] [employer] Nina Higinio [id number] Nina Higinio 06/27/2024 1 [place] [facility] OF PUBLIC AID Nina Higinio [id number] Nina Higinio 09/04/2024 1 [facility] [place] Nina Higinio [id number] Nina Higinio 09/04/2024 1 [place] [facility] OF PUBLIC AID Nina Higinio [id number] Nina Higinio 09/06/2024 1 [facility] [place] Nina Higinio [id number] Nina Higinio 09/06/2024 1 [place] [facility] PUBLIC AID Nina Higinio [id number] Nina Higinio Notes Date Note Type Note Provider Name and Address Organization Details Recorded Time 11/16/19 24 text/htm l Generic HPI TemplateReported bypatient.Notes:11/16/23L/sh oulder painh/o b/o CTS and did see completed L/CTS sx, never f/u for the R/side-still bothersalso having a mole on R/cheek-2 months scab then falls offShoulderReported bypatient.Hand Dominance:right Location:left Quality:aching; deep Severity:mild (to mod) Duration:2 months Context:woke up with it Alleviating Factors:rest; NSAIDs (OTC ibuprofen, helps) Associated Symptoms:no weakness; no numbness; no tingling Previous Surgery:none Prior Imaging:no recent studies Previous Injections:none PATRICIA [employer]Works for [employer] Skyler Flores MD Attn: Accounting[address] [place], [address], [facility] 11/16/2023 13:42:04 06/13/20 text/htm pj Wood is a 53 y/o presenting for stitches removal after a dog bite. Reports breaking up dog fight on 06/02/24, sustained bite wounds to dorsal aspect of left hand and anterior and posterior right forearm.Was seen in [facility] ED and received stitches, TDaP, and antibiotics. No x-ray or rabies prophylaxis.Has completed antibiotics. Reports persistent pain, swelling, and palpable nodule on anterior right forearm. Associated tight feeling and numbness in right hand.Has been taking ibuprofen 800 mg 3-4 times per day with little improvement in pain.Left hand not causing problems. Patient denies fever, chills, headache, dizziness, chest pain, cough, shortness of breath, abdominal pain, nausea, vomiting, constipation, diarrhea, and dysuria. Reports the dog belonged to a friend and is currently quarantined. Robert Allen MD Attn: Accounting[address] [place], [address], [facility] 06/18/2024 19:00:24 06/27/20 text/htm pj Wood is a 53 y/o here to establish care and discuss the following: Dog biteFrom previous (06/13/24):Reports breaking up dog fight on 06/02/24, sustained bite wounds to dorsal aspect of left hand and anterior and posterior right forearm.Was seen in [facility] ED and received stitches, TDaP, and antibiotics. No x-ray or rabies prophylaxis.Has completed antibiotics. Reports persistent pain, swelling, and palpable nodule on anterior right forearm. Associated tight feeling and numbness in right hand.Has been taking ibuprofen 800 mg 3-4 times per day with little improvement in pain.Left hand not causing problems.Patient denies fever, chills, headache, dizziness, chest pain, cough, shortness of breath, abdominal pain, nausea, vomiting, constipation, diarrhea, and dysuria.Reports the dog belonged to a friend and is currently quarantined.Advised to continue ibuprofen and add Tylenol for pain. Planned x-ray to evaluate for retained foreign body. Update (06/27/24):Lacerations healing well. Still no sign of infection or systemic sick symptoms.Nodule on right forearm unchanged from previous. Has not yet gotten x-ray.Dog is acting normal, no sign of rabies. Back pain, hip pain, osteopeniaPain in center of back starting few months agoFeels like bulging disc Pain radiating up to neck, to sides, and to hipsAlso with pain in bilateral hips, knees right more than left, and shoulder left more than rightWorsened after standing for a long timeAssociated numbness on right side of leg and in crease of right hipHistory of multiple car accidentsAlso reports right leg is chronically shorter than left, had insert in shoe that improved symptoms but lost itTakes ibuprofen with some improvementDiagnosed with osteopenia through OBGYNHad bone scan, no record availableStrong family history of osteoporosis, multiple fractures in family membersHad total hysterectomy after abnormal pap smear, unknown if actual diagnosis of cervical cancer, unknown if ovaries still there Patient denies fever, chills, headache, dizziness, chest pain, shortness of breath, abdominal pain, nausea, vomiting, constipation, diarrhea, and dysuria. Also denies saddle anesthesia and incontinence. PulmonologySmoker 1 pack per day, wishes to quitChronic productive cough at baseline GERDOn omeprazole OTC dailyNot addressed fully due to time constraints SocialSmoker 1 pack per day x20 years, wishes to quitAlso uses cocaine for pain approximately once a month PreventativeCervical cancer screening - sees Dr. Her, has had hysterectomyCRC screening - deferred due to time constraintsSTI screening - managed by Dr. Bone 7, PHQ 2 - 0 on 11/16/23Mammography q1-2 years - managed by Dr. HerASCVD - deferred due to time constraintHgb A1c - deferred due to time constraintLDCT - deferred due to time constraintOsteoporosis screen: FRAX - previously ordered, will need records MIRELLA MCKINNEY MD Attn: Accounting,[address] , [place], [address], [place] [facility] 07/22/2024 14:27:50 09/04/20 24 text/htm pj Wood is a 54 t/o here to discuss the following: Left kneePainful, knot on backside showed up a few months agoNo traumaHad arthroscopy 30 years ago, reports cedric schlatter as a kidMost painful across front of kneeWorse going up stairs, squatting, both in morning and evening, standing up, weatherBetter with brace, tight thingsLidocaine, ibuprofen 800 3-4 times a dayHad PT years agoNever had injections, is willing to try GERDPreviously on omeprazole, deescalated to famotidine 20 mg BID, still with some symptomsTried 40 mg daily and it works much better Dog bite06/13/24:Reports breaking up dog fight on 06/02/24, sustained bite wounds to dorsal aspect of left hand and anterior and posterior right forearm.Was seen in [facility] ED and received stitches, TDaP, and antibiotics. No x-ray or rabies prophylaxis.Has completed antibiotics. Reports persistent pain, swelling, and palpable nodule on anterior right forearm. Associated tight feeling and numbness in right hand.Has been taking ibuprofen 800 mg 3-4 times per day with little improvement in pain.Left hand not causing problems.Patient denies fever, chills, headache, dizziness, chest pain, cough, shortness of breath, abdominal pain, nausea, vomiting, constipation, diarrhea, and dysuria.Reports the dog belonged to a friend and is currently quarantined.Advised to continue ibuprofen and add Tylenol for pain. Planned x-ray to evaluate for retained foreign body. 06/27/24:Lacerations healing well. Still no sign of infection or systemic sick symptoms.Nodule on right forearm unchanged from previous. Has not yet gotten x-ray.Dog is acting normal, no sign of rabies. 09/04/24:Pain about the same as beforeHas not had US, told she needs to pay out of pocketTried to set up therapy at , hard to get therePrefers [facility] for therapy and US SocialSmoker 1 pack per day x20 years, wishes to quitAlso uses cocaine for pain approximately once a month PreventativeCervical cancer screening - sees Dr. Her, has had hysterectomyCRC screening - deferred due to time constraintsSTI screening - managed by Dr. Bone 7, PHQ 2 - 0 on 11/16/23Mammography q1-2 years - managed by Dr. HerASCVD - BMI WNLHgb A1c - BMI WNLLDCT - deferred due to time constraintsOsteoporosis screen: FRAX - previously ordered, will need records RADHA DUNCAN MD Attn: Accounting[address] [facility], [place], [address], [place] [facility] 09/09/2024 14:49:26 09/06/20 24 text/htm l 54 yo F presents to the clinic for left knee injection. Concern for osteoarthritis and parks's cyst of the left knee. Sent by PCP for injection.Painful, knot on backside showed up a few months agoNo traumaHad arthroscopy 30 years ago, reports cedric schlatter as a kidMost painful across front of kneeWorse going up stairs, squatting, both in morning and evening, standing up, weatherBetter with brace, tight thingsHad PT years agoNever had injections Robert Allen MD Attn: Accounting[address] [facility], [place], [address], [place] [facility] 09/20/2024 06:01:33 OBGyn Episode No OBEpisode recorded.
--- OUTSIDE RECORDS SUMMARY | 2024-11-02 12:47 | XMS_ITS | Clinical Summary ---
Author Organization [facility] Address [address] [place] [address] Care Team Providers Care Shop Manager Name Role Phone Skyler Flores MD Unavailable [phone] Janeth Ward DO Unavailable [phone] Sonia Winters MD Primary Care Provider [phone] Allergies Active Allergy Reactions Criticality Noted Date Comments Penicillins Hives Medium Sulfamethoxazole-Trimethoprim Hives Medium Medications omeprazole (PriLOSEC) 20 mg capsule Take 20 mg by mouth daily Active cholecalciferol (VITAMIN D-3) 50,000 unit capsule Vitamin D3 1.25 MG (19744 UT) Oral Capsule QTY: 0 capsule Days: [...] hours as needed for pain 10 tablet Active Additional Information Patient not taking.Reported on 10/28/2022 Active Problems Problem Noted Date Diagnosed Date Bilateral carpal tunnel syndrome 11/16/2021 Overview (11/16/2021): Added automatically from request for surgery [id number] Cubital tunnel syndrome on left 11/16/2021 Overview (11/16/2021): Added automatically from request for surgery [id number] Atypical glandular cells on cervical Pap smear 0 06/07/2021 Overview (06/07/2021): Added automatically from request for surgery [id number] Bronchopneumonia 03/12/2021 Smoker 03/12/2021 Acute respiratory failure with hypoxia (CMS/HCC) 03/12/2021 Anal skin tag 04/30/2019 Thrombosed external hemorrhoid 04/30/2019 Sepsis due to urinary tract infection (CMS/HCC) 09/02/2017 Acute cystitis with hematuria 09/02/2017 Dyspepsia 03/13/2014 Hypoxemia Encounters Date Type Department Care Team Description 09/09/2024 2:04 PM WOOD WEB WEAVING MACHINE OPERATOR - 09/09/2024 11:59 PM WOOD WEB WEAVING MACHINE OPERATOR Hospital Encounter [facility] [address] [place] [address] Bitten by dog, subsequent encounter Discharge Disposition: Discharge to home or self care from Last 3 Months Immunizations Name Administration Dates Next Due Influenza, Quadrivalent, Split, Intramuscular Influenza, Quadrivalent, Spl it, Preservative Free, Intramuscular 07/18/2016 Surgical History Surgery Date Site/Laterality Comments KNEE ARTHROSCOPY Left COLPOSCOPY W/ BIOPSY / CURETTAGE HYSTERECTOMY JOINT REPLACEMENT orthoscopic left knee surgery 25 years ago; however, no replacement Medical History Medical History Date Comments Arthritis hands, knee Motion sickness Smoking History of abnormal cervical Pap smear AGC Abnormal Pap smear of cervix Pneumonia Chronic bronchitis (HCC) GERD (gastroesophageal reflux disease) Family History Medical History Relation Name Comments Prostate cancer Brother Relation Name Status Comments Brother Alive Father Alive Mother Alive Social History Tobacco Use Types Packs/Day [...] on file Legal Sex Female 3:20 AM WOOD WEB WEAVING MACHINE OPERATOR Gender Identity Not on file Sexual Orientation Not on file Occupation Industry Job Start Date Job End Date DORS Not on file Not on file Not on file Obstetrics History Para Term AB IAB SAB Ectopic Multiple Livin g Live Births 2 1 1 Date Outcome GA Total Labor Labor/2nd/3rd Weight Sex Type Anes PTL Rhonda A1 A5 Name Clin Term Last Filed Vital Signs Vital Sign Reading [...] 03/19/2024 1:35 PM CDT Plan of Treatment Health Maintenance Due Date Last Done Comments Colon Cancer Screening-Colonoscopy 1972 Depression Screening 1972 Pneumococcal vaccine <65 (1 of 2 - PCV) 1978 Hepatitis B Screening 1990 Lung Cancer Screening 2022 Zoster Vaccine (1 of 2) 2022 Covid-19 Vaccine (3 - 2023-2 5 season) 2024 08/06/2021, 07/16/2021 Influenza Vaccine (#1) 2024 4, 06/24/2022, 07/16/2021, Additional history exists Breast Cancer Screening-Mammogram 03/19/2025 03/19/2024, 12/30/2022, 07/09/2021, Additional history exists Regular Well Visit/Exam 18-64 03/19/2025, 10/28/2022, 04/22/2021 DTaP/Tdap/Td Vaccine (2 - Td or Tdap) 06/02/2034 06/02/2024 Cervical Cancer Screening Discontinued 04/22/2021 Hepatitis C Screening Completed 06/28/2024 Procedures Procedure Name Priority Date/Time Associated Diagnosis Comments US UPPER EXTREMITY RIGHT LIMITED Schedule Routine, Read Routine (OP Routine) 09/09/2024 2:34 PM WOOD WEB WEAVING MACHINE OPERATOR Bitten by dog, subsequent encounter HEPATITIS C [...] Upper Extremity Right Limited (09/09/2024 2:34 PM WOOD WEB WEAVING MACHINE OPERATOR) Anatomical Region Laterality Modality Upper Extremities Right Ultrasound 09/12/2024 1:53 PM WOOD WEB WEAVING MACHINE OPERATOR Narrative 09/12/2024 1:55 PM WOOD WEB WEAVING MACHINE OPERATOR EXAM DESCRIPTION: US UPPER EXTREMITY RIGHT LIMITED REASON FOR STUDY: Bitten by dog subsequent encounter TECHNIQUE: A Dynamic assessment was performed of the right forearm by the application software engineer, with selected grayscale and color Doppler images [...] Ke Crawford M.D. MF: DAVON Report ID: [id number] Reading Location: [id number] Procedure Note Ke Crawford MD - 09/12/2024 EXAM DESCRIPTION: US UPPER EXTREMITY RIGHT LIMITED REASON FOR STUDY: Bitten by dog subsequent encounter TECHNIQUE: A Dynamic assessment was performed of the right forearm bythe application software engineer, with selected grayscale and color Doppler images [...] Ke Crawford M.D. MF: DAVON Report ID: [id number] Reading Location: [id number] Sonia Winters MD [facility] US PROCEDURES Final R esult * Hepatitis C (HCV) RNA PCR, quantitative Blood (06/28/2024 2:06 PM CDT) [facility] HCV RNA result Not Detected [facility] Comment: The quantifiable range of this assay is 15 IU/mL to 100,000,000 IU/mL (1.18 log IU/mL to 8.00 log IU/mL). Testing was performed by the HAYLIE 6800 HCV Test ([employer] Testing performed at [facility] Current Interpretive Data was last revised on 2021 Testing performed by: [facility], [address], [place]., [address] Blood 06/28/2024 2:06 PM CDT 06/28/2024 6:01 PM CDT Narrative [facility] (FONTANEL[facility]) - 07/01/2024 11:52 AM CDT [id number] Sonia Winters MD LAB MICROBIOLOGY - GENERA L ORDERABLES Final Result [facility] (FONTANELLE) [address] [facility] Department [place] [address] [facility] * Screening Mammogram Bilateral W Reji (03/19/2024 [...] There has been no suspicious interval change. us Janeth Ward DO IMG MAMMO PROCEDURES Fi nal Result * (ABNORMAL) Imaging Pap and HPV mRNA E6/E7 (04/22/2021 3:22 PM CDT) CLINICAL INFORMATION: [facility] Comment:Postmenopausal LMP [facility] Comment:PM Previous Pap [facility] Comment:INFORMATION NOT PROV IDED Prev. Bx [facility] Comment:INFORMATION NOT PROV IDED SOURCE: [facility] Comment:Cervix, Endocervix Pap, specimen adequacy [facility] Comment: Satisfactory for evaluation. Endocervical/transformation zone component present. Pap, general categorization (A) [facility] Comment:EPITHELIAL CELL ABNO RMALITY HPV interp (A) [facility] Comment:Atypical Glandular C ells COMMENTS [facility] Comment: This Pap test has been evaluated with computer assisted technology. Suggest clinical correlation and follow-up as clinically appropriate [employer]ead [employer] Ins[employer] [facility] Comment: BKA, CT(ASCP) CT screening location: [place] [address] [place] [address] Pathologist [facility] Comment: Francisco Martinez M.D., Board Certified in Anatomic Pathology and Cytopathology. (electronic signature) Comment [facility] Comment: EXPLANATORY NOTE: The Pap is a [...] High Risk E6/E7 Detected (A) Not Detected [facility] Comment: Methodology: Marine Machinist-Mediated Amplification This assay detects E6/E7 viral messenger RNA (mRNA) from 14 high-risk HPV types (16,18,31,33,35,39,45,51,52,56,58,59,66,68). The analytical performance characteristics of this assay have been determined by [employer]. The modifications have not been cleared or approved by the FDA. This assay has been validated pursuant to the CLIA regulations and is used for clinical purposes. For additional information, please refer to http://education.Playto/faq/DAQ298s0 (This link if provided for information/ educational purposes only.) 04/22/2021 3:22 PM CDT 04/23/2021 8:57 AM CDT Narrative [facility] - 04/26/2021 2:55 PM CDT FASTING: UNKNOWN Janeth Ward DO LAB PATHOLOGY ORDERABLE S Final Result [facility] [address] [place] [address] [facility] [address] [place] [address] from Last 3 Months or Most Recently Relevant to Health Maintenance Insurance [facility] [employer] [facility] [place] Advance Directives For more information, please contact: [phone] * Full Code (Latest Code Status on File) Date Activated Date Inactivated Comments 03/12/2021 9:48 PM 03/14/2021 4:19 PM * Full Code Date Activated Date Inactivated Comments 03/12/2021 9:24 PM 03/12/2021 9:48 PM * Full Code Date Activated Date Inactivated Comments 09/02/2017 12:02 AM 09/04/2017 4:20 PM Care Teams Shop Manager Relationship Specialty Start Date End Date Sonia Winters MD [address] [place] [address] PCP - General Family Medicine 07/01/24 Skyler Flores MD Internal Medicine 12/14/23 Janeth Ward DO [address] [place] [address] Consulting Physician Obstetrics and Gynecology 06/28/21
--- OUTSIDE RECORDS SUMMARY | 2024-11-02 12:47 | XMS_ITS | Clinical Summary ---
Author Organization [facility] Address [address] [place] [address] Phone Care Team Providers Care Webmaster Name Role Phone AMANDA MEJIA, ROSEANN Lee Unavailable [phone] REINA FORD Primary Care Provider Un available Reason for Visit and Chief Complaint NO SHOW Problems Includes: Problems addressed during this encounter and other active Problems All Visits Onset Date Resolved Date Provider Condition S tatus Cervical Pap Smear Positive Atypical Glandular Cells 05/26/2020 ROSEANN PATEL MD Active Last Documented On 05/26/2020 10:44AM ; [facility] Note: Unchanged Dyspepsia 03/13/2014 AIME GOODE MD Active Last Documented On 4 11:13AM ; [facility] Smoking Cigarettes 02/28/2013 AIME GOODE MD Active Last Documented On 3 10:55AM ; [facility] Note: Currently smoking a pack per [...] On 0 10:04AM By SUN HOWARD ; [facility] Body/Hair/Skin/Nails Oral Capsule 11/18/2019 Provide r: Diagnosis: Last Documented On 0 1:56PM By SUN HOWARD ; [facility] Vitamin D3 1.25 MG (75014 UT) Oral Capsule 08/26/2019 Provider: Diagnosis: Last Documented On 9 12:49PM By DOMINICK HOWARD ; [facility] Omeprazole 20 MG Oral Tablet Delayed Release 08/08 Provider: Diagnosis: Last Documented On 08/08/2019 1:52PM By DOMINICK HOWARD ; [facility] Medications Administered Includes: Administered Medications from this [...] Active Last Documented On 0 10:03AM ; [facility] Bactrim Allergy 02/18/2011 Active Last Documented On 0 10:03AM ; [facility] Encounters Encounter Provider Location Date Check-In Time Check-Out Time Diagnosis NO SHOW ROSEANN PATEL MD [facility]- 09/30/2020 8:05AM 11:59PM Insurance Includes: Active Insurance Policies Plan Name Member ID Group # Subscriber Relationship Effect latrell Dates 1 - [facility] [id number] LLOYD STRANGE Self Clinical Notes Includes: Clinical Notes from this encounter No Clinical Notes Recorded
--- OUTSIDE RECORDS SUMMARY | 2024-11-02 12:47 | XMS_ITS | Clinical Summary ---
Author Organization [facility] Address [address] [place] [address] Phone Care Team Providers Care Hard Hat Diver Name Role Phone AMANDA MEJIA, ROSEANN Lee Unavailable [phone] REINA FORD Primary Care Provider Un available Reason for Visit and Chief Complaint NO SHOW Problems Includes: Problems addressed during this encounter and other active Problems All Visits Onset Date Resolved Date Provider Condition S tatus Cervical Pap Smear Positive Atypical Glandular Cells 05/26/2020 ROSEANN PATEL MD Active Last Documented On 05/26/2020 10:44AM ; [facility] Note: Unchanged Dyspepsia 03/13/2014 AIME GOODE MD Active Last Documented On 4 11:13AM ; [facility] Smoking Cigarettes 02/28/2013 AIME GOODE MD Active Last Documented On 3 10:55AM ; [facility] Note: Currently smoking a pack [...] [facility] Vitamin D3 1.25 MG (44240 UT) Oral Capsule 08/26/2019 Provider: Diagnosis: Last Documented On 9 12:49PM By DOMINICK HOWARD ; [facility] Omeprazole 20 MG Oral Tablet Delayed Release 08/08 Provider: Diagnosis: Last Documented On 08/08/2019 1:52PM By DOMINICK HOWARD ; [facility] Medications Administered Includes: Administered Medications [...] 0 10:03AM ; [facility] Encounters Encounter Provider Location Date Check-In Time Check-Out Time Diagnosis NO SHOW [facility] 09/28/2020 3:26PM 11:59PM Insurance Includes: Active Insurance Policies Plan Name Member ID Group # Subscriber Relationship Effect latrell Dates 1 - [facility] [id number] LLOYD STRANGE Self Clinical Notes Includes: Clinical Notes from this encounter No Clinical Notes Recorded
[2024-11-02 12:48] LABS: Basophils Absolute Auto 0.1 K/mm3 (0.0-0.1); Basophils Percent Auto 1.3 % (0.2-1.2); Eosinophils Absolute Auto 0.3 K/mm3 (0-0.3); Hematocrit 42.5 % (37.0-47.0); Hemoglobin 14.8 g/dL (12.0-15.0); Immature Granulocyte Absolute 0.01 K/mm3 (0.00-0.031); Immature Granulocyte Percent A 0.2 % (0-0.5); Lymphocytes Percent Auto 25.9 % (18.3-44.2); Mean Corpuscular HGB Conc 34.8 g/dl (32-36); Mean Corpuscular Hemoglobin 32.9 pg (26-34); Mean Corpuscular Volume 94.4 fl (80-100); Mean Platelet Volume 11.4 fl (7.4-10.4); Monocytes Absolute Auto 0.5 K/mm3 (0.1-0.6); Monocytes Percent Auto 8.3 % (2.6-8.5); Neutrophils Absolute Auto 3.7 K/mm3 (1.3-6.7); Neutrophils Percent Auto 60.3 % (45.5-73.1); Platelet Count Result 234 k/mm3 (150-375); Red Cell Distribution Width 11.9 % (11.5-14.5); White Blood Count 6.2 K/mm3 (4.5-10.0)
[2024-11-02 12:49] LABS: Alanine Aminotransferase 16 U/L (6-35); Albumin Level 3.8 g/dL (3.5-5.1); Alkaline Phosphatase 72 U/L (38-126); Anion Gap 9 mmol/L (4-12); Aspartate Amino Transferase 23 U/L (14-36); Bilirubin,Total 0.5 mg/dL (0.2-1.3); Blood Urea Nitrogen 22 mg/dL (7-17); Calcium 9.8 mg/dL (8.4-10.2); Carbon Dioxide 26 mmol/L (22-30); Chloride 101 mmol/L (98-107); Estimated CRCL calculation 90 ml/min; Estimated Glomerular Filt Rate > 60; Glucose 116 mg/dL (65-110); Lipase 111 U/L (23-300); Potassium 3.6 mmol/L (3.4-5.0); Sodium 136 mmol/L (137-145)
[2024-11-02 12:58] LABS: Troponin I < 0.012 ng/mL (0.000-0.034)
[2024-11-02 13:05] LABS: Prothrombin Time 13.6 Seconds (11.1-14.7)
--- NOTE | 2024-11-02 14:24 | ED.GENADULT ---
HPI - General Adult General Chief complaint: Chest Pain Stated complaint: CP x 2 hours Time Seen by Provider: 11/02/24 12:40 History of Present Illness HPI narrative: 54-year-old female presented to the emergency department for evaluation for approximately 30 minutes of left-sided chest pain that occurred today. Patient describes the pain as read per back to her chest it was associated with shortness of breath. Patient denies any previous cardiac history. Patient denies any prior history of PE or DVT. Upon arrival to the emergency department patient denies any current pain or shortness of breath. Related Data Allergies Allergy/AdvReac Type Severity Reaction Status Date / Time Sulfa (Sulfonamide Allergy Intermediate Hives Verified 11/02/24 14:29 Antibiotics) Penicillins Allergy Unknown Hives Unverified 05/19/23 22:08 sulfamethoxazole Allergy Unknown Hives Unverified 05/19/23 22:08 trimethoprim Allergy Unknown Hives Unverified 05/19/23 22:08 Review of Systems Review of Systems: All systems reviewed & are unremarkable except as noted in HPI and below Exam Narrative: APPEARANCE: Well appearing, no pain, no distress, well-nourished. HEAD: normocephalic, atraumatic. EYES: PERRLA/EOMI, conjunctivae clear. NOSE: Normal no drainage EARS:TMS clear with good light reflex. THROAT: Pharynx clear, no exudate. NECK: Supple. No adenopathy, no masses. RESPIRATORY: Airway patent, respirations nonlabored. Clear to auscultation bilaterally, no rales, rhonchi, wheezing. CARDIOVASCULAR: Regular rate and rhythm without murmurs rubs or gallops. ABDOMINAL: Soft, nontender, nondistended, normal bowel sounds MUSCULOSKELETAL: Moves all extremities. Strength/ROM intact, No edema, No calf tenderness. NEURO: Alert. Cranial nerves II through XII intact. Good gait. Good coordination SKIN: Warm, dry. Normal Color Course Vital Signs Vital signs: Vital Signs Pulse Rate 102 H 11/02/24 12:13 Respiratory Rate 16 11/02/24 12:13 Blood Pressure 98/76 L 11/02/24 12:13 Pulse Oximetry 96 11/02/24 12:13 Oxygen Delivery Room Air 11/02/24 12:13 Pulse Rate 84 11/02/24 14:29 Respiratory Rate 16 11/02/24 14:29 Blood Pressure 113/91 H 11/02/24 14:29 Pulse Oximetry 100 11/02/24 14:29 Oxygen Delivery Room Air 11/02/24 12:20 Medical Decision Making [facility] Narrative Medical decision making narrative: 54-year-old female presents emergency department for evaluation for 30 minutes of left-sided chest pain. Pain was resolved at time of evaluation. Patient is currently afebrile with no leukocytosis and hemoglobin 14.8. Patient has an INR of 1.0. No significant acute abnormalities on the patient's CMP. Lipase was negative. CTA was ordered to evaluate for pulmonary embolism due to the description of her pain this was negative for pulmonary embolism or other cardiopulmonary abnormalities. Patient's initial troponin was negative. Patient and correction officers were updated on the plan to check a 2nd troponin. All questions concerns were addressed. Patient's 2nd troponin was negative as well. Patient was updated on results of her workup shows, with plan for discharge and close follow-up. Patient was scratched have additional outpatient cardiac workup. Differential Diagnosis Differential Diagnosis: ACS, COVID, RSV, pneumonia, influenza, pulmonary embolism, pneumothorax Vital Signs Vital Signs: Vital Signs Pulse Rate 102 H 11/02/24 12:13 Respiratory Rate 16 11/02/24 12:13 Blood Pressure 98/76 L 11/02/24 12:13 Pulse Oximetry 96 11/02/24 12:13 Oxygen Delivery Room Air 11/02/24 12:13 Pulse Rate 84 11/02/24 14:29 Respiratory Rate 16 11/02/24 14:29 Blood Pressure 113/91 H 11/02/24 14:29 Pulse Oximetry 100 11/02/24 14:29 Oxygen Delivery Room Air 11/02/24 12:20 Lab Data Lab results reviewed: Yes I reviewed the patient's lab results. 11/02/24 12:28 11/02/24 12:28 Labs: Lab Results 11/02/24 11/02/24 11/02/24 Range/Units 12:28 12:32 13:57 WBC 6.2 (4.5-10.0) K/mm3 RBC 4.50 (4.2-5.4) M/mm3 Hgb 14.8 (12.0-15.0) g/dL Hct 42.5 (37.0-47.0) % MCV 94.4 (80-100) fl MCH 32.9 (26-34) pg MCHC 34.8 (32-36) g/dl RDW 11.9 (11.5-14.5) % Plt Count 234 (150-375) k/mm3 MPV 11.4 H (7.4-10.4) fl Immature Gran % (Auto) 0.2 (0-0.5) % Neut % (Auto) 60.3 (45.5-73.1) % Lymph % (Auto) 25.9 (18.3-44.2) % Allen % (Auto) 8.3 (2.6-8.5) % Eos % (Auto) 4.0 (0-4.4) % Baso % (Auto) 1.3 H (0.2-1.2) % Lymph # (Auto) 1.60 (0.9-3.2) K/mm3 Allen # (Auto) 0.5 (0.1-0.6) K/mm3 Eos # (Auto) 0.3 (0-0.3) K/mm3 Baso # (Auto) 0.1 (0.0-0.1) K/mm3 Abs Immat Gran (auto) 0.01 (0.00-0.031) K/mm3 Absolute Neuts (auto) 3.7 (1.3-6.7) K/mm3 Absolute Nucleated RBC 0.000 (0.0-0.012) K/mm3 Nucleated RBC % 0.0 (0.0-0.2) % PT 13.6 (11.1-14.7) Seconds INR 1.0 APTT 30.0 (22.3-36.8) Seconds Sodium 136 L (137-145) mmol/L Potassium 3.6 (3.4-5.0) mmol/L Chloride 101 (98-107) mmol/L Carbon Dioxide 26 (22-30) mmol/L Anion Gap 9 (4-12) mmol/L BUN 22 H (7-17) mg/dL Creatinine 0.63 L (0.7-1.0) mg/dL Estim Creat Clear Calc 90 ml/min Estimated GFR > 60 (59 - ) Glucose 116 H (65-110) mg/dL POC Capillary Glucose 111 H (65-105) mg/dl Calcium 9.8 (8.4-10.2) mg/dL Total Bilirubin 0.5 (0.2-1.3) mg/dL AST 23 (14-36) U/L ALT 16 (6-35) U/L Alkaline Phosphatase 72 (38-126) U/L Troponin I < 0.012 (0.000-0.034) ng/mL Total Protein 7.0 (6.3-8.2) g/dL Albumin 3.8 (3.5-5.1) g/dL Lipase 111 (23-300) U/L Influenza A (RT-PCR) Negative (Negative) Influenza B (RT-PCR) Negative (Negative) RSV (RT-PCR) Negative (Negative) SARS-CoV-2 RNA (RT-PCR) Negative (Negative) 11/02/24 Range/Units 15:52 WBC (4.5-10.0) K/mm3 RBC (4.2-5.4) M/mm3 Hgb (12.0-15.0) g/dL Hct (37.0-47.0) % MCV (80-100) fl MCH (26-34) pg MCHC (32-36) g/dl RDW (11.5-14.5) % Plt Count (150-375) k/mm3 MPV (7.4-10.4) fl Immature Gran % (Auto) (0-0.5) % Neut % (Auto) (45.5-73.1) % Lymph % (Auto) (18.3-44.2) % Allen % (Auto) (2.6-8.5) % Eos % (Auto) (0-4.4) % Baso % (Auto) (0.2-1.2) % Lymph # (Auto) (0.9-3.2) K/mm3 Allen # (Auto) (0.1-0.6) K/mm3 Eos # (Auto) (0-0.3) K/mm3 Baso # (Auto) (0.0-0.1) K/mm3 Abs Immat Gran (auto) (0.00-0.031) K/mm3 Absolute Neuts (auto) (1.3-6.7) K/mm3 Absolute Nucleated RBC (0.0-0.012) K/mm3 Nucleated RBC % (0.0-0.2) % PT (11.1-14.7) Seconds INR APTT (22.3-36.8) Seconds Sodium (137-145) mmol/L Potassium (3.4-5.0) mmol/L Chloride (98-107) mmol/L Carbon Dioxide (22-30) mmol/L Anion Gap (4-12) mmol/L BUN (7-17) mg/dL Creatinine (0.7-1.0) mg/dL Estim Creat Clear Calc ml/min Estimated GFR (59 - ) Glucose (65-110) mg/dL POC Capillary Glucose (65-105) mg/dl Calcium (8.4-10.2) mg/dL Total Bilirubin (0.2-1.3) mg/dL AST (14-36) U/L ALT (6-35) U/L Alkaline Phosphatase (38-126) U/L Troponin I < 0.012 (0.000-0.034) ng/mL Total Protein (6.3-8.2) g/dL Albumin (3.5-5.1) g/dL Lipase (23-300) U/L Influenza A (RT-PCR) (Negative) Influenza B (RT-PCR) (Negative) RSV (RT-PCR) (Negative) SARS-CoV-2 RNA (RT-PCR) (Negative) Imaging Data Radiologist's impression: Impressions Chest X-Ray 11/02/24 13:20 IMPRESSION: 1. No acute cardiopulmonary disease. Chest CTA 11/02/24 13:27 IMPRESSION: 1. No pulmonary embolism or other acute cardiopulmonary disease. Discharge Plan Discharge Clinical Impression: Chest pain Patient Disposition: Home, Self-Care Condition: Stable Instructions: Antibiotic Form, Chest Pain (ED) Additional Instructions: Have follow-up with your primary care physician for additional outpatient cardiac testing. If you have any worsening symptoms then please call or return to the emergency department. Patient Language: Sammarinese Follow-up/Referrals: PHYSICIAN,CAREER INFORMATION SPECIALIST [Primary Care Provider] - Quality HEART score for chest pain patients History: slightly suspicious ECG: normal Age: > 45 and < 65 years Risk factors: 1 or 2 risk factors Troponin: < or = to 1x normal limit Heart score: 2
[2024-11-02 14:29] VITALS: BP 113/91; PULSE 84; RESP 16; O2SAT 100
[2024-11-02] MEDS: SODIUM CHLORIDE 0.9% IV 1,000 ML 999 ML IV CONT (14:32)
[2024-11-02 14:36] LABS: Influenza A QL RT-PCR Negative (Negative); Influenza B QL RT-PCR Negative (Negative); RSV RNA, RT-PCR Negative (Negative); SARS-CoV-2 RNA PCR Negative (Negative)
--- NOTE | 2024-11-02 15:46 | ECG_ITS ---
Test Date: 2024-11-02 12:33:56 Measurements Intervals [place] Rate: 93 P: 78 MI: 159 QRS: 72 QRSD: 75 T: 78 QT: 353 QTc: 439 Interpretive Statements SINUS RHYTHM POSSIBLE LEFT ATRIAL ENLARGEMENT BORDERLINE ECG No previous ECG available for comparison Electronically Signed On 11-03-2024 08:23:36 JOCKEY AGENT by Talha Abreu D.O.
[2024-11-02 16:21] LABS: Troponin I < 0.012 ng/mL (0.000-0.034)
== END 2024-11-02 16:40 | disposition home or self-care (01) ==
PROVIDERS: Emergency Medicine; Emergency Provider Emergency Medicine
DX: R07.9 Chest pain, unspecified (principal); Z20.822 Contact with and (suspected) exposure to COVID-19; R94.31 Abnormal electrocardiogram [ECG] [EKG]
CPT/HCPCS: 36415; 71046; 71275; 80053; 82948; 83690; 84484; 85025; 85610; 85730; 87637; 93005; 96360; 99284; J7030; Q9967